=== PATIENT | female | born 1970 | race Caucasian/White ===

== ENCOUNTER 2020-04-14 10:28 | Outpatient (CLI) | payer OTHER, SELFPAY ==
--- NOTE | ~2020-04-14 | MM_ITS ---
EXAMINATION: MM screening jesús BI w randy HISTORY: Screening mammogram TECHNIQUE: Craniocaudal and mediolateral oblique 3-D tomosynthesis images were obtained and synthetic 2-D images were generated. CAD analysis was submitted and interpreted. COMPARISON: 07/21/2017 BREAST PARENCHYMAL COMPOSITION: There are scattered areas of fibroglandular density. FINDINGS: There is no evidence of suspicious mass, calcification, or architectural distortion to sugg est malignancy in either breast. There has been no suspicious interval change. IMPRESSION: 1. No mammographic evidence of malignancy. 2. Recommend routine screening mammography in one year. BI-RADS Category 1: Negative Reviewed, dictated and finalized at location A. S TECHNICIAN
== END 2020-04-14 10:29 | disposition home or self-care (01) ==
LOC: ANHIMG 10:32
PROVIDERS: PCP Family Medicine; Visit Provider Family Medicine
DX: Z12.31 Encounter for screening mammogram for malignant neoplasm of breast (principal)
CPT/HCPCS: 77063; 77067

== ENCOUNTER 2021-07-26 11:27 | Outpatient (CLI) | payer BC, SELFPAY ==
--- NOTE | ~2021-07-26 | XR_ITS ---
EXAMINATION: XR chest 2V 07/26/2021 11:47 INDICATION: Persistent cough PROCEDURE: 2 view chest COMPARISON: 08/30/2007 FINDINGS: The lungs are clear. The cardiomediastinal silhouette is within normal limits. There are no pleural effusions. There is no pneumothorax suspected. IMPRESSION: 1: NO ACUTE CARDIOPULMONARY DISEASE. Reviewed, dictated and finalized at location A. TRIMMER
== END 2021-07-26 11:28 | disposition home or self-care (01) ==
PROVIDERS: PCP Family Medicine
DX: R05.3 Chronic cough (principal); F17.210 Nicotine dependence, cigarettes, uncomplicated
CPT/HCPCS: 71046

== ENCOUNTER 2024-10-08 08:16 | Emergency (ER) | payer BC, SELFPAY ==
--- NOTE | ~2024-10-08 | XR_ITS ---
XR finger 2nd RT min 2V Ordering provider: Julia Rutherford APRN History: . RT distal 2nd digit sledgehammer to finger 30 min ago . Comparison: None. FINDINGS: BONES: Possible lucency seen in the lateral aspect of the base of the distal phalanx of the second fi nger which may be a fracture or summation shadow. Follow-up advised. JOINT SPACES: Narrowing of the distal interphalangeal joint. SOFT TISSUES: Laceration seen in the soft tissues of the distal phalanx of the second finger IMPRESSION: Possible fracture at the base of the distal phalanx laterally versus summation shadow. Follow-up advi sed. Soft tissue laceration in the area of the distal interphalangeal joint of the second finger. Reviewed, dictated and finalized at location A. IMPRESSION: Possible fracture at the base of the distal phalanx laterally versus summation shadow. Follow-up advised. Soft tissue laceration in the area of the distal interphalangeal joint of the s econd finger.
--- NOTE | 2024-10-08 08:27 | ED_ITS ---
HPI - Extremity Injury (Upper) General Chief Complaint: Extremity Injury, Upper Stated Complaint: right finger injury Time Seen by Provider: 10/08/24 08:35 Source: patient Mode of arrival: ambulatory Limitations: no limitations History of Present Illness HPI narrative: 54-year-old female presented for complaint of an injury and laceration to the right index finger sustained just prior to arrival. 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 Cleansed the finger with water and applied bandages. Endorses normal range of motion and sensation. Tetanus updated last year. Related Data Home Medications ?Medication ?Instructions ?Recorded ?Confirmed ?Last Taken ?Type alprazolam 1 mg tablet 1 mg PO TID PRN anxiety 10/08/24 10/08/24 Unknown History amitriptyline 25 mg tablet 25 mg PO HS 10/08/24 10/08/24 Unknown History buspirone 30 mg tablet 30 mg PO BID 10/08/24 10/08/24 Unknown History celecoxib 200 mg capsule 200 mg PO Q12H 10/08/24 10/08/24 Unknown History fluticasone fur. 100 mcg-umeclid 1 inh inhalation Q24H 10/08/24 10/08/24 Unknown History 62.5 mcg-vilant 25 mcg inhalat.powder (Trelegy Ellipta) gabapentin 800 mg tablet 800 mg PO TID 10/08/24 10/08/24 Unknown History pantoprazole 40 mg tablet,delayed 40 mg PO DAILY 10/08/24 10/08/24 Unknown History release sertraline 100 mg tablet 150 mg PO Q24H 10/08/24 10/08/24 Unknown History trazodone 100 mg tablet 100 mg PO HS PRN insomnia 10/08/24 10/08/24 Unknown History Allergies Allergy/AdvReac Type Severity Reaction Status Date / Time No Known Allergies Allergy Unknown Unverified 10/08/24 08:50 Review of Systems Review of Systems: CONSTITUTIONAL: Denies body aches, fever, chills CARDIOVASCULAR: Denies chest pain, palpitations, or edema. RESPIRATORY: Denies cough or dyspnea. SKIN: reports index finger lac MUSCULOSKELETAL: reports index finger pain NEUROLOGIC: Denies headache, numbness, tingling, or weakness. All systems reviewed & are unremarkable except as noted in HPI and below PMFSH Family History Family History (System 07/14/21 @ 16:07 by Waleska Hebert) Other Family history of arthritis Social History Social History (System 07/14/21 @ 16:07 by Waleska Hebert) Smoking status: Smoker, status unknown Alcohol intake: never Comments At time of signature, I have reviewed and agree with nursing past medical, surgical, social and family history unless otherwise noted. Please see nursing chart for further information. There is no relevant family history pertinent to the presenting complaint Exam Narrative: GENERAL: Well-appearing CHEST: Speaks in full sentences. No respiratory distress. HEART: Regular rate and rhythm. Normal and equal peripheral pulses. EXTREMITIES: Right hand 2nd digit with laceration to palmar aspect of DIP, 2cm, irregular. Digit has normal strength and sensation, normal range of motion. Skin avulsion to distal phalanx dorsal and palmar aspects <0.5cm. pulse palpable and equal bilaterally, skin warm, dry, pink. Capillary refill less than 3 seconds. SKIN: Warm, dry NEURO: Alert and oriented x3. PSYCH: Normal mood and affect Course Course Emergency Course: Patient is aware of diagnosis, understands and agrees to treatment plan. Anticipatory guidance given. Patient agrees to follow-up as directed and is aware of reasons to seek care at the emergency department. Portions of this record may have been created with voice recognition software Level of Care: Express Care Visit Vital Signs Vital signs: Vital Signs Temperature 98.3 F 10/08/24 08:28 Pulse Rate 101 H 10/08/24 08:28 Respiratory Rate 16 10/08/24 08:28 Blood Pressure 120/97 H 10/08/24 08:28 Pulse Oximetry 98 10/08/24 08:28 Oxygen Delivery Room Air 10/08/24 08:28 Temperature 98.3 F 10/08/24 08:28 Pulse Rate 101 H 10/08/24 08:28 Respiratory Rate 16 10/08/24 08:28 Blood Pressure 120/97 H 10/08/24 08:28 Pulse Oximetry 98 10/08/24 08:28 Oxygen Delivery Room Air 10/08/24 08:28 Reviewed Procedures Laceration Right 2nd digit: Date: 10/08/24 Description: irregular and clean Depth: simple, single layer Local Anesthetic: lidocaine 1% Amount of anesthesia used (mL): 5 Pre-repair: wound explored and irrigated (and soaked betadine and sterile water) ====== Skin Level ====== Skin layer closed with: nylon Size (cm): 5-0 Number of sutures: 5 Technique: simple, interrupted ====== Subcutaneous Layer ====== ====== Muscle Layer ====== ====== Tendon Layer ====== Dressing: Dressing and metal finger splint applied. MDM - Extremity Injury (Upper) MDM Narrative Medical decision making narrative: Discussed physical exam findings and xray with pt Contacted Dr Coombs who reviewed images and advised a few sutures, abx, metal finger splint and follow up with him. Pt tolerated 5 sutures to the wound, dressing and metal finger splint applied. Advised supportive measures and signs/symptoms to go to the ER. Pt is appropriate for outpt treatment and f/u with Dr Coombs. She is aware to contact her employer for workman's comp. Differential Diagnosis Differential diagnosis: Likely other (finger open fracture, dislocation, contusion, abrasion, avulsion, laceration) Imaging Data Radiologist's impression: Patient: Breonna Remy : 1970 MR#: [id number] Age: 54 Acct:[id number] Loc: [facility] ADM Date: 10/08/24Attending Dr: Ordering Physician: Julia Rutherford APRN Date of Service: 10/08/24 Procedure(s): XR finger 2nd RT min 2V XR finger 2nd RT min 2V Ordering provider: Julia Rutherford APRN History: . RT distal 2nd digit sledgehammer to finger 30 min ago . Comparison: None. FINDINGS: BONES: Possible lucency seen in the lateral aspect of the base of the distal phalanx of the second finger which may be a fracture or summation shadow. Follow-up advised. JOINT SPACES: Narrowing of the distal interphalangeal joint. SOFT TISSUES: Laceration seen in the soft tissues of the distal phalanx of the second finger IMPRESSION: Possible fracture at the base of the distal phalanx laterally versus summation s hadow. Follow-up advised. Soft tissue laceration in the area of the distal interphalangeal joint of the second finger. Discharge Plan Discharge Clinical Impression: Finger fracture, right, Finger laceration Patient Disposition: Home Condition: Stable Instructions: Antibiotic Form, Finger Fracture (ED), Finger Laceration (ED) Additional Instructions: You will need to be seen by the Hand Specialist Dr Coombs. Call today to schedule an appointment Keep the splint clean, and in place. Keep the splint dry. you may remove dressing/splint and wash as normal with soap and water gently. Do NOT wash with peroxide or alcohol. Take tylenol or ibuprofen at home for pain Take antibiotic as directed Avoid lifting, pushing, pulling, etc with the right hand, avoid anything that will risk contamination of the wound. Follow up with your PCP Go to the ER with any signs of infection such as redness, swelling, increased pain, or drainage prior to the appointment with the hand specialist. Patient Language: Surinamese Prescriptions: New cephalexin 500 mg capsule 500 mg PO Q8H 7 Days Qty: 21 0RF No Action celecoxib 200 mg capsule 200 mg PO Q12H alprazolam 1 mg tablet 1 mg PO TID PRN (Reason: anxiety) sertraline 100 mg tablet 150 mg PO Q24H amitriptyline 25 mg tablet 25 mg PO HS gabapentin 800 mg tablet 800 mg PO TID trazodone 100 mg tablet 100 mg PO HS PRN (Reason: insomnia) pantoprazole 40 mg tablet,delayed release (DR/EC) 40 mg PO DAILY buspirone 30 mg tablet 30 mg PO BID Trelegy Ellipta 100-62.5-25 mcg blister with device 1 inh INHALATION Q24H Follow-up/Referrals: Florence Coombs MD [Physician] - (right 2nd digit distal phalanx fracture and laceration) UNKNOWN,DOCTOR [Primary Care Provider] -
[2024-10-08 08:28] VITALS: BP 120/97; PULSE 101; RESP 16; TEMP 36.8; O2SAT 98
[2024-10-08] MEDS: LIDOCAINE 1% LOCAL INJ 2 ML AMPUL 6 ML INFILTRATE (09:35)
== END 2024-10-08 10:22 | disposition home or self-care (01) ==
PROVIDERS: Emergency Provider Nurse Practitioner Family
DX: S62.600A Fracture of unspecified phalanx of right index finger, initial encounter for closed fracture (principal); S61.210A Laceration without foreign body of right index finger without damage to nail, initial encounter; W27.8XXA Contact with other nonpowered hand tool, initial encounter; K21.9 Gastro-esophageal reflux disease without esophagitis; M19.90 Unspecified osteoarthritis, unspecified site; F41.9 Anxiety disorder, unspecified; F32.A Depression, unspecified; Z96.651 Presence of right artificial knee joint
CPT/HCPCS: 12001; 29130; 73140; 99214; G0463; J2003

== ENCOUNTER 2024-10-20 11:00 | Emergency (ER) | payer OTHER, BC, SELFPAY ==
--- NOTE | 2024-10-20 11:01 | ED_ITS ---
HPI - Wound/Laceration General Chief Complaint: Wound/Laceration Stated Complaint: Wound Check Time Seen by Provider: 10/20/24 11:00 Source: patient Mode of arrival: ambulatory Limitations: no limitations History of Present Illness HPI narrative: Breonna is a 54-year-old female patient presenting to the clinic today with complaints of a possible wound infection. She reports she injured her right index finger on October 08 while at work. States she hit her index finger with a sledgehammer. Diagnosed with open fracture of the right distal index finger and had 5 sutures placed. Took Keflex as prescribed for 1 week. Notice last night that the area was getting red and swollen and more painful. Noticed some yellow discharge this morning. No fevers, chills, body aches. Localized redness and swelling to the distal tip of the right index finger. Related Data Home Medications ?Medication ?Instructions ?Recorded ?Confirmed ?Last Taken ?Type alprazolam 1 mg tablet 1 mg PO TID PRN anxiety 10/08/24 10/08/24 Unknown History amitriptyline 25 mg tablet 25 mg PO HS 10/08/24 10/08/24 Unknown History buspirone 30 mg tablet 30 mg PO BID 10/08/24 10/08/24 Unknown History celecoxib 200 mg capsule 200 mg PO Q12H 10/08/24 10/08/24 Unknown History fluticasone fur. 100 mcg-umeclid 1 inh inhalation Q24H 10/08/24 10/08/24 Unknown History 62.5 mcg-vilant 25 mcg inhalat.powder (Trelegy Ellipta) gabapentin 800 mg tablet 800 mg PO TID 10/08/24 10/08/24 Unknown History pantoprazole 40 mg tablet,delayed 40 mg PO DAILY 10/08/24 10/08/24 Unknown History release sertraline 100 mg tablet 150 mg PO Q24H 10/08/24 10/08/24 Unknown History trazodone 100 mg tablet 100 mg PO HS PRN insomnia 10/08/24 10/08/24 Unknown History Allergies Allergy/AdvReac Type Severity Reaction Status Date / Time No Known Allergies Allergy Unknown Unverified 10/09/24 14:36 Review of Systems Review of Systems: Pertinent positives per HPI. Patient denies any fever, chills, rash, headache, visual changes, dizziness, cough, runny nose, sore throat, shortness of breath, chest pain, palpitations, nausea, vomiting, diarrhea, constipation, abdominal pain, or any urinary issues. [facility] Family History Family History Other Family history of arthritis Social History Social History Smoking status: Never smoker Alcohol intake: never Comments At the time of my signature, I reviewed and agree with the nursing past medical, surgical, social, and family history. There is no relevant family history pertinent to the patient complaint. Exam Narrative: General: Well-developed, well nourished, in no apparent distress Head: Normocephalic, atraumatic. Cardio: Regular rate and rhythm, s1 and s2 normal, no murmur appreciated. Resp: Clear to auscultation bilaterally, no rhonchi, rales, wheezing or rubs. Integumentary: Spivey, warm, and dry, 5 interrupted sutures intact to the volar lateral aspect of the right distal index finger, yellow discharge with mild erythema, redness, mild swelling, and tenderness to palpation noted to the distal right index finger. Wound culture obtained Course Course Emergency Course: Portions of this record may have been created with voice recognition software. Level of Care: Express Care Visit Vital Signs Vital signs: Vital Signs Temperature 36.8 C 10/20/24 11:07 Pulse Rate 78 10/20/24 11:07 Respiratory Rate 16 10/20/24 11:07 Blood Pressure 102/79 10/20/24 11:07 Pulse Oximetry 100 10/20/24 11:07 Oxygen Delivery Room Air 10/20/24 11:07 Temperature 36.8 C 10/20/24 11:07 Pulse Rate 78 10/20/24 11:07 Respiratory Rate 16 10/20/24 11:07 Blood Pressure 102/79 10/20/24 11:07 Pulse Oximetry 100 10/20/24 11:07 Oxygen Delivery Room Air 10/20/24 11:07 Vital signs reviewed MDM - Wound/Laceration MDM Narrative Medical decision making narrative: At the time of visit patient is resting comfortably on the exam table. Patient appears to be nontoxic. Labs: Wound Culture was sent to the lab. Plan: I suspect patient has a wound infection. Prescription for clindamycin was sent to the pharmacy. Supportive measures were discussed with the patient and they voiced understanding discharge instructions and agrees to treatment plan. Return precautions reviewed Differential Diagnosis Differential diagnosis: Likely laceration, abscess and other (Wound infection, cellulitis) Discharge Plan Discharge Clinical Impression: Wound infection Patient Disposition: Home Condition: Stable Instructions: Antibiotic Form, Wound Infection (ED) Additional Instructions: Increase fluids and stay well hydrated Rest, ice, and elevate May take Tylenol/Motrin as needed for pain Wash wound daily with soap and water and pat dry Wound culture was sent to the lab Take clindamycin as prescribed Take probiotic daily-2 hours before 2 hours after taking the antibiotic Follow-up with Dr. Coombs on Monday as scheduled. Patient Language: Bulgarian Prescriptions: New clindamycin HCl [Cleocin HCl] 300 mg capsule 300 mg PO Q8H 7 Days Qty: 21 0RF No Action celecoxib 200 mg capsule 200 mg PO Q12H alprazolam 1 mg tablet 1 mg PO TID PRN (Reason: anxiety) sertraline 100 mg tablet 150 mg PO Q24H amitriptyline 25 mg tablet 25 mg PO HS gabapentin 800 mg tablet 800 mg PO TID trazodone 100 mg tablet 100 mg PO HS PRN (Reason: insomnia) pantoprazole 40 mg tablet,delayed release (DR/EC) 40 mg PO DAILY buspirone 30 mg tablet 30 mg PO BID Trelegy Ellipta 100-62.5-25 mcg blister with device 1 inh INHALATION Q24H cephalexin 500 mg capsule 500 mg PO Q8H 7 Days Qty: 21 0RF Follow-up/Referrals: UNKNOWN,DOCTOR [Non-Staff] - Time of Disposition: 11:13 Quality NIHSS Nursing Documentation ED NIHSS nursing documentation: reviewed/agree
[2024-10-20 11:07] VITALS: BP 102/79; PULSE 78; RESP 16; TEMP 36.8; O2SAT 100
== END 2024-10-20 11:22 | disposition home or self-care (01) ==
PROVIDERS: Emergency Provider Nurse Practitioner Family
DX: T81.41XA Infection following a procedure, superficial incisional surgical site, initial encounter (principal)
CPT/HCPCS: 87070; 87075; 87205; 99213; G0463

== ENCOUNTER 2024-10-22 09:10 | Outpatient (CLI) | payer OTHER, SELFPAY ==
--- NOTE | ~2024-10-22 | XR_ITS ---
XR finger 2nd RT min 2V Ordering provider: Florence Coombs MD History: . S62.630A - Displaced fracture of distal phalanx of right ... . Comparison: None. FINDINGS: BONES: Healing fracture at the base of the distal phalanx of the second finger. JOINT SPACES: Narrowing of the distal interphalangeal joint. SOFT TISSUES: Soft tissue swelling over the distal phalanx. IMPRESSION: Healing fracture of the distal phalanx of the second finger. 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 Reviewed, dictated and finalized at location A.
--- OUTSIDE RECORDS SUMMARY | 2024-10-22 09:26 | XMS_ITS | Encounter Summary ---
Author Organization [facility] Address [address] [place] [address] Care Team Providers Care Director Of Primary Name Role Phone Unavailable Primary Care Provider Unavailabl e Encounter Details Date Type Department Care Team (Late st Contact Info) Description 07/29/2020 Ancillary Orders [facility] [address] [address] Laura Magdaleno MD [address] [place] [id number] Coronavirus infection, unspecified Social History Tobacco Use Types Packs/Day Years Used Date Smoking Tobacco: Never Assessed Comments Unknown Sex and Gender Information Value Date Recorded Sex Assigned at Not on file 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 No / Unsure 07/29/2020 2:28 PM DATABASE TESTER documented as of this encounter Plan of Treatment Not on file documented as of this encounter Results * XR CHEST PA AND LATERAL 2 VW (07/29/2020 2:42 PM DATABASE TESTER) Anatomical Region Laterality Modality Chest Computed Radiogr aphy 07/29/2020 2:43 PM DATABASE TESTER Impressions 07/29/2020 3:05 PM DATABASE TESTER IMPRESSION: Normal chest. Narrative 07/29/2020 3:05 PM DATABASE TESTER Exam: XR CHEST PA AND LATERAL 2 VW Date/Time of Exam: 07/29/2020 2:42 PM Reason For Exam: See Diagnosis Diagnosis: Coronavirus infection, unspecified Findings: The heart size is normal. The lungs are clear. The costophrenic angles are sharp. No pneumothorax is seen. Procedure Note Ty Tatum MD - 07/29/2020 Exam: XR CHEST PA AND LATERAL 2 VW Date/Time of Exam: 07/29/2020 2:42 PM Reason For Exam: See Diagnosis Diagnosis: Coronavirus infection, unspecified Findings: The heart size is normal. The lungs are clear. The costophrenic angles are sharp. No pneumothorax is seen. IMPRESSION: Normal chest. us Laura Magdaleno MD DIAGNOSTIC IMAGING ORDERABLE S Final Result documented in this encounter Visit Diagnoses Diagnosis Coronavirus infection, unspecified Coronavirus infection, unspecified documented in this encounter
--- OUTSIDE RECORDS SUMMARY | 2024-10-22 09:26 | XMS_ITS | Continuity of Care Document ---
Author Organization [facility] Address [address] [address] [place] [address] Phone Care Team Providers Care Lube Man Name Role Phone Teddy Flores MD Unavailable Unavailable Advance Directives Directive Yes / No Effective Date File Name No Information Encounters Encounter Description Practice Location Reason(s) For Visit Diagnoses Date Provider Providers Copied on Encounter [facility], [address] [place], [place], [id number], tel:[phone] [facility] No Information Mark Espinal. [address], [address] [place], [place], [id number], [place]. tel:[phone] Referring Provider: Teddy Flores, [address], [place], [id number]. tel:[phone] Family History Family Member Type Diagnosis Age At Onset No Information Payers Payer name Insurance type Covered constitution party ID Authoriza tion(s) No Information Social History Type Description Quantity Date Captured Comments Sex Female Smoking Status No Information Chief Complaint And Reason For Visit No Information Plan Of Treatment Date Type Action Status No Information History Of Present Illness Encounter Date Complaint History Of Prese nt Illness No Information Instructions Date Instruction Additional Infor mation No Information Assessments Type Assessment Date No Information
--- OUTSIDE RECORDS SUMMARY | 2024-10-22 09:26 | XMS_ITS | Clinical Summary ---
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 Gender Identity Not on file Sexual Orientation Not on file Plan of Treatment Health Maintenance Due Date Last Done Comments HEPATITIS B VACCINES (1 of 3 - 19+ 3-dose series) 06/1989 HPV/Cotest (21-29) 02/28/1992 CERVICAL CANCER SCREENING 2001 HPV/Cotest (30-65) 2001 PAP SMEAR 2001 BREAST CANCER SCREENING 2011 COLORECTAL SCREENING 02/28/2016 Colorectal Cancer Screening 02/28/2016 FIT-DNA Q 3 years 02/28/2016 FIT/FOBT Q 1 year 02/28/2016 Flex Sig/CT Colonography Q 5 years 02/28/2016 ZOSTER VACCINE (1 of 2) 2021 INFLUENZA VACCINE (#1) 2023 DTAP/TDAP/TD VACCINES (2 - Td or Tdap) 09/13/2027 Insurance RX [employer] (INTERNAL) [facility] [employer]URANCE RX [employer] Commercial
--- OUTSIDE RECORDS SUMMARY | 2024-10-22 09:26 | XMS_ITS | Referral Summary ---
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 Name Role Phone Parul Cam NP Primary Care Provider Encounters Date Type Department Care Team Description 10/18/2024 12:30 PM CDT Telemedicine [facility] at [address] [place] [address] Parul Cam NP Healthcare maintenance (Primary Dx); Mucopurulent chronic bronchitis (HCC); ANDREW (generalized anxiety disorder); Psychophysiologic insomnia; Mixed hyperlipidemia; Multiple joint pain; Closed nondisplaced fracture of distal phalanx of right index finger with routine healing, subsequent encounter 10/02/2024 Results Follow-Up [facility] at [address] [place] [phone] Parul Cam NP BEVERLY ab ql w/rflx to BEVERLY qn, Rheumatoid factor, CRP (acute phase), Additional followed-up results: 12 09/26/2024 11:40 AM CDT Lab [facility] Bldg [address] [place] [address] [address] [place] [address] Multiple joint pain; Healthcare maintenance; Need for hepatitis B screening test; Encounter for hepatitis C screening test for low risk patient; Vitamin D deficiency 09/26/2024 11:00 AM CDT Office Visit [facility] at [address] [place] [phone] Parul Cam NP Multiple joint pain (Primary Dx); Psychophysiologic insomnia; ANDREW (generalized anxiety disorder); Spinal stenosis of lumbar region without neurogenic claudication; Class 2 severe obesity with serious comorbidity and body mass index (BMI) of 39.0 to 39.9 in adult, unspecified obesity type (HCC); Mixed hyperlipidemia; GERD without esophagitis; Tobacco dependence; Healthcare maintenance; Need for hepatitis B screening test; Encounter for hepatitis C screening test for low risk patient; Mucopurulent chronic bronchitis (HCC) 08/12/2024 3:45 PM CDT Office Visit [facility] Surgery [address] [place] [address] Advanced Medicine 6th [place] [address] Maria Luisa Nobles MD Lip laceration, initial encounter (Primary Dx) 08/07/2024 10:20 AM CDT - 08/07/2024 12:15 PM CDT Surgery [facility] Operating [facility]) [address] [place] [address] Maria Luisa Nobles MD REVISION SCAR - FACE - LEFT upper lip scar revision 08/07/2024 10:11 AM CDT Anesthesia Event [facility] ([facility]) [address] [place] [address] Glen Fraire MD DDS Figura, Renee Michelle, NP 08/07/2024 8:04 AM CDT - 08/07/2024 2:35 PM CDT Hospital Encounter [facility] Operating [facility] ([facility]) [address] [place] [address] Maria Luisa Nobles MD Scar of skin of upper lip Discharge Disposition: Discharge to home or self care 08/05/2024 9:15 AM CDT Lab [facility]) [address] [place] [phone] Scar of vermilion border of upper lip 08/02/2024 Orders Only [facility] Surgery [address] [place] [address] Advanced Medicine 6th [place] [address] Bonk, Diana, RN Scar of vermilion border of upper lip (Primary Dx) from Last 3 Months Allergies No known active allergies Medications busPIRone (BUSPAR) 30 mg tablet Take 1 tablet (30 mg total) by mouth 2 (two) times a day 03/24/20 22 Active sertraline 150 mg capsule Take 150 mg by mouth every morning 05/29/[address] (PROTONIX) 40 mg EC tabletIndicati ons:Gastroesop hageal reflux disease, unspecified whether esophagitis present Take 1 tablet (40 mg total) by mouth daily 90 tablet 3 07/15/19 25 Active Additional Information Patient taking differently:40 mg oralEvery morning, Indications: Stress Ulcer Prophylaxis, Informant: Self, Reported on 10/18/2024 ALPRAZolam (XANAX) 1 mg tablet Take 1 tablet (1 mg total) by mouth daily as needed for anxiety 2 07/30/19 25 Active gabapentin (NEURONTIN) 800 mg tablet Take 300 mg by mouth 3 (three) times a day Active traZODone (DESYREL) 100 mg tabletIndicati ons:Psychophys iologic insomnia Take 1.5 tablets (150 mg total) by mouth nightly as needed for sleep 09/27/19 25 Active celecoxib (CeleBREX) 200 mg capsule Take 1 capsule (200 mg total) by mouth 2 (two) times a day 180 capsule 3 09/27/19 25 026 Active fluticasone-um eclidin-vilant er (Trelegy Ellipta) 100-62.5-25 mcg inhalerIndicat ions:Mucopurul ent chronic bronchitis (HCC) Inhale 1 puff daily 60 each 2 10/19/19 25 Active fexofenadine (JANET) 60 mg tablet Take 1 tablet (60 mg total) by mouth daily as needed (allergies) 025 Discontinued(P atient Reported) ibuprofen (ADVIL,MOTRIN) 800 mg tablet Take 1 tablet (800 mg total) by mouth 3 (three) times a day 90 tablet 11 06/09/19 24 025 Discontinued(T herapy completed) celecoxib (CeleBREX) 200 mg capsule Take 1 capsule (200 mg total) by mouth 2 (two) times a day 180 capsule 3 10/13/19 24 025 Discontinued(R eorder) cyclobenzaprin e (FLEXERIL) 10 mg tablet Take 1 tablet (10 mg total) by mouth 2 (two) times a day as needed for muscle spasms 60 tablet 5 10/13/19 24 025 Discontinued(P atient Reported) fluticasone-um eclidin-vilant er (Trelegy Ellipta) 100-62.5-25 mcg inhalerIndicat ions:Mucopurul ent chronic bronchitis (HCC) Inhale 1 puff daily 60 each 2 02/08/20 24 025 Discontinued(R eorder) traZODone (DESYREL) 100 mg tabletIndicati ons:Primary insomnia Take 1 tablet (100 mg total) by mouth nightly as needed for sleep 30 tablet 2 02/08/20 24 025 Discontinued amitriptyline (ELAVIL) 25 mg tablet Take 1 tablet (25 mg total) by mouth nightly 30 tablet 09/27/19 25 025 Discontinued(P atient Reported) fluticasone-um eclidin-vilant er (Trelegy Ellipta) 100-62.5-25 mcg inhalerIndicat ions:Mucopurul ent chronic bronchitis (HCC) Inhale 1 puff daily 60 each 2 09/27/19 25 025 Discontinued(P atient Reported) eszopiclone (LUNESTA) 1 mg tabletIndicati ons:Insomnia Take 1 tablet (1 mg total) by mouth daily Take immediately before bedtime 30 tablet 10/19/19 25 025 Discontinued(T herapy completed) Active Problems Problem Noted Date Diagnosed Date Nondisplaced fracture of dis guido phalanx of right index finger with routine healing 10/18/2024 Mucopurulent chronic bronchitis 10/18/2024 ANDREW (generalized anxiety disorder) 09/26/2024 Tobacco dependence 09/26/2024 Simple chronic bronchitis 09/26/2024 Multiple joint pain 09/26/2024 Class 2 severe obesity with serious comorbidity and body mass index (BMI) of 35.0 to 35.9 in adult 09/26/2024 Scar of skin of upper lip 06/24/2024 GERD without esophagitis 08/10/2023 Primary osteoarthritis of both knees 07/22/2022 Mixed hyperlipidemia 07/26/2021 Diverticulosis of colon 11/27/2019 Hot flashes due to menopause 05/02/2017 Nontoxic multinodular goiter 05/02/2017 Psychophysiologic insomnia 05/02/2017 Spinal stenosis of lumbar region 10/12/2016 Resolved Problems Problem Noted Date Diagnosed Date Resolved Date Viral upper respiratory tract infection 06/24/2024 09/26/2024 Muscle spasm 08/10/2023 09/26/2024 Primary osteoarthritis of right knee 12/05/2022 09/26/2024 Dyslipidemia 07/22/2022 09/26/2024 Dental abscess 07/22/2022 09/26/2024 Overview (07/22/2022): Clndamycin. COVID-19 07/28/2020 09/26/2024 Overview (06/24/2024): Removal Reason: Recovered Gastritis 11/27/2019 09/26/2024 Internal hemorrhoids 11/27/2019 025 Obesity 09/12/2017 09/26/2024 Assessment & Plan (01/16/2023 7:51 AM CDT): Recommended aggressive Lifestyle modification and weight loss for improving overall weight related health conditions. Follow up in 1 or 3 months for continuing Lifestyle Medicine education and management visit. Recommend Lifestyle Seminar on Wednesdays @ 5pm. Chronic back pain 08/06/2017 09/26/2024 Tobacco use 08/06/2017 09/26/2024 Other chronic pain 08/06/2017 Anxiety disorder 05/02/2017 09/26/2024 Allergic rhinitis 04/18/2017 09/26/2024 Cough 04/18/2017 09/26/2024 Sciatica 04/18/2017 09/26/2024 Anxiety 04/18/2017 09/26/2024 Low back pain 04/18/2017 09/26/2024 Multinodular goiter 04/18/2017 09/27/19 25 Bronchitis 04/17/2017 09/26/2024 Contusion of upper limb 04/17/2017 05/0 05/2024 Overview (06/24/2024): LUE Venereal disease screening 10/12/2016 0 09/26/2024 Depressive disorder 10/12/2016 09/27/19 25 Thyroid nodule 10/12/2016 09/26/2024 Cigarette nicotine dependenc e without complication 10/12/2016 09/26/2024 Morbid obesity with body mas s index of 40.0-49.9 10/12/2016 09/26/2024 Insomnia 10/12/2016 09/26/2024 Assessment & Plan (10/16/2023 9:30 AM CDT): Patient have tried and failed ambien and lunesta in the past. Immunizations Immunization Administration Dates Next Due DTaP 01/19/2007, 3,01/07/2002,11/05,07/26/2001 HPV9 07/12/2016,03/15/2016,01/04/2016 Hep A, Pediatric 11/21/2018 Hep B / HiB 11/05/2001 Hep B, Adolescent or Pediatric 06/26/2001,2000 HiB 10/07/2002,01/07/2002,07/26/2001 IPV 01/19/2007, 2,11/05/2001,07/26 Influenza, Quadrivalent, Spl it, Intramuscular 03/17/2020 Influenza, Quadrivalent, Spl it, Preservative Free, Intramuscular 04/29/2023,02/21/2022,05/23/2021,04/24 Influenza, Split 04/27/2016 Influenza, Trivalent, Preser vative Free, Intramuscular 02/03/2024 MMR 01/19/2007,06/10/2002 Meningococcal B, OMV (Bexsero) 11/21/2018 Meningococcal Conjugate (Menveo) 11/21/2018 Meningococcal MCV4, Unspecified 01/03/2013 Moderna SARS-CoV-2 Monovalen t Vaccination (12+ YRS) 11/10/2020,10/13/2020 Pneumococcal Conjugate 7-Valent 10/07/2002,06/10,11/05/2001 Pneumococcal Conjugate Pcv20 07/28/2021 Tdap 02/21/2022,09/12/2017,01/03/2013 Varicella 02/19/2007,06/10/2002 ZOSTER Recombinant 07/28/2021,05/23/2021 Social History Tobacco Use Types Packs/Day Years Used Date Smoking Tobacco: Former Cigarettes 0.5 35 1 6 - 2020 Smokeless Tobacco: Never Tobacco Cessation:Counseling Given: Not Answered Comments:pt denied improvement with Nicotine patches AUDIT-C Answer Date Recorded Q1: How often do you have a drink containing alcohol? Never 10/18/2024 Q2: How many drinks containi ng alcohol do you have on a typical day when you are drinking? Patient does not drink Q3: How often do you have si x or more drinks on one occasion? Never 10/18/2024 PHQ-2 Answer Date Recorded PHQ-2 Total Score (If total score is 3 or more points, staff should administer the PHQ-9) 0 09/26/2024 PHQ-9 Answer Date Recorded PHQ-9 Total Score 3 09/26/2024 Personal Safety Answer Date Recorded Have you ever been in or are you currently in a harmful physical or emotional relationship or is someone making you feel afraid or unsafe? 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 Gender Identity Female 11/18/2020 6:45 AM CDT Sexual Orientation Straight 11/18/2020 6: 45 AM CDT Last Filed Vital Signs Vital Sign Reading Time Taken Comments Blood Pressure 130/86 09/26/2024 10:53 AM CDT Pulse 89 09/26/2024 10:53 AM CDT Temperature 36.4 C (97.5 F) 09/26/2024 10:53 AM CDT Respiratory Rate 18 09/26/2024 10:53 AM CDT Oxygen Saturation 94% 09/26/2024 10:53 AM CDT Inhaled Oxygen Concentration - - Weight 107.5 kg (237 lb) 10/18/2024 12:33 PM CDT per patient Height 165.1 cm (5' 5 ) 09/26/2024 10:53 AM CDT Body Mass Index 39.44 09/26/2024 10:53 AM CDT Plan of Treatment Not on file Medical Devices Implanted Type Area Anesthesiologists' Assistant Device Identifier Shelf Expiration Date Model / Serial / Lot Right Knee Replacement Right: Knee Procedures Procedure Name Priority Date/Time Associated Diagnosis Comments EGFR Routine 09/26/2024 11:52 AM CDT Healthcare maintenance DIFFERENTIAL AUTO Routine 09/26/2024 11:52 AM CDT Healthcare maintenance VITAMIN D 25 HYDROXY Routine 09/26/2024 11:52 AM CDT Vitamin D deficiency THYROID FUNCTION CASCADE Routine 09/26/2024 11:52 AM CDT Healthcare maintenance COMPREHENSIVE METABOLIC PANEL Routine 09/26/2024 11:52 AM CDT Healthcare maintenance CBC WITH AUTO DIFFERENTIAL Routine 09/26/2024 11:52 AM CDT Healthcare maintenance LIPID PANEL Routine 09/26/2024 11:52 AM CDT Healthcare maintenance ERYTHROCYTE SEDIMENTATION RATE Routine 09/26/2024 11:52 AM CDT Multiple joint pain CRP (ACUTE PHASE) Routine 09/26/2024 11:52 AM CDT Multiple joint pain RHEUMATOID FACTOR Routine 09/26/2024 11:52 AM CDT Multiple joint pain BEVERLY QUALITATIVE WITH REFLEX TO BEVERLY QUANTITATIVE Routine 09/26/2024 11:52 AM CDT Multiple joint pain HEPATITIS C ANTIBODY Routine 09/26/2024 11:52 AM CDT Encounter for hepatitis C screening test for low risk patient HEPATITIS B SURFACE ANTIBODY (IMMUNE STATUS) Routine 09/26/2024 11:52 AM CDT Need for hepatitis B screening test HEPATITIS B CORE ANTIBODY, TOTAL Routine 09/26/2024 11:52 AM CDT Need for hepatitis B screening test HEPATITIS B SURFACE ANTIGEN Routine 09/26/2024 11:52 AM CDT Need for hepatitis B screening test TX 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 Routine 08/07/2024 11:59 AM CDT TX AN ELECTIVE ENDOTRACHEAL AIRWAY Routine 08/07/2024 11:59 AM CDT SURGICAL PATHOLOGY Routine 08/07/2024 11:25 AM CDT Scar of skin of upper lip RHINOPLASTY. 08/07/2024 10:10 AM CDT Scar of skin of upper lip Case Notes 07/25 - Waiting for WIT. NB Special Needs Permanent specimen, 1% Lidocaine w/ Epinephrine 1:100 000, TXA (1 vial) REVISION SCAR HEAD OR NECK. 08/07/2024 10:10 AM CDT Scar of skin of upper lip Case Notes 07/25 - Waiting for WIT. NB Special Needs Permanent specimen, 1% Lidocaine w/ Epinephrine 1:100 000, TXA (1 vial) DIFFERENTIAL AUTO Routine 08/05/2024 9:2 7 AM CDT Scar of vermilion border of upper lip HCG, URINE, QUALITATIVE Routine 08/05/2024 9:27 AM CDT Scar of vermilion border of upper lip PROTIME-INR Routine 08/05/2024 9:27 AM CDT Scar of vermilion border of upper lip APTT Routine 08/05/2024 9:27 AM CDT Scar of vermilion border of upper lip CBC WITH AUTO DIFFERENTIAL Routine 08/05/2024 9:27 AM CDT Scar of vermilion border of upper lip DIAGNOSTIC MAMMOGRAM Schedule Routine, Read Routine (OP Routine) 09/17/2021 COLONOSCOPY Routine 11/12/2019 from Last 3 Months or Most Recently Relevant to Health Maintenance Results * BEVERLY ab ql w/rflx to BEVERLY qn (09/26/2024 11:52 AM CDT) BEVERLY Negative Comment: Interpretive Data Normal range for BEVERLY Qualitative Antibody = Negative. 1. BEVERLY is performed using indirect immunofluorescence against HEp-2 cells 2. BEVERLY titers are performed on all positive qualitative results. 3. A significantly positive BEVERLY result is defined as a positive nuclear fluorescence at a titer of 1:80 or greater. 4. 15% of normal people above age 65 have significantly positive BEVERLY results. 5% or less of normal people age 65 or under have significantly positive BEVERLY results. Current interpretive data was last revised on 2020. Testing performed by: [facility], [address] [place]., [address] Blood 09/26/2024 11:5 2 AM CDT 09/26/2024 3:03 PM CDT us Parul Cam FIELD TRAINER LAB BLOOD ORDERABLES Final Re sult [facility] [address] [facility] Department [place] [address] * eGFR (09/26/2024 11:52 AM CDT) eGFR >90 >=60 mL/min/1. 73 m2 Comment: Interpretive Data Reference Interval Normal >/= 90 mL/min/1.73m2 Mildly decreased* 60 - 89 mL/min/1.73m2 Mildly to moderately decreased 45 - 59 mL/min/1.73m2 Moderately to severely decreased 30 - 44 mL/min/1.73m2 Severely decreased 15 - 29 mL/min/1.73m2 Kidney Failure < 15 mL/min/1.73m2 *Relative to young adult level Estimated glomerular filtration rate is determined by the 2020 CKD-EPI equation recommended by the National Kidney Foundation (A Unifying Approach to GFR Estimation: Recommendations of the NKF-ASK Task Force on Reassessing the Inclusion of Race in Diagnosing Kidney Disease, JASN 2020). The CKD-EPI equation should not be used for patients with unstable renal function and has not been validated in children and those over 70. Current interpretive data was last reviewed 2021. Blood 09/26/2024 11:5 2 AM CDT 09/26/2024 12:23 PM CDT us Parul Cam NP LAB BLOOD ORDERABLES Final Re sult [facility] [address] [facility] Department [place] [address] * Differential, auto (09/26/2024 11:52 AM CDT) Neutrophil abs 4.05 1.50 - 6.50 K/cumm Imm gran abs 0.01 0.00 - 0.10 K/cumm [facility] Lymphocyte abs 1.98 0.80 - 3.30 K/cumm [facility] Monocyte abs 0.52 0.20 - 0.80 K/cumm [facility] Eosinophil abs 0.08 0.00 - 0.50 K/cumm [facility] Basophil abs 0.04 0.00 - 0.10 K/cumm [facility] Neutrophil pct 60.7 % [facility] Comment: Interpretive Data Percent cell count reference ranges are not reported, since discordance with absolute values may lead to misinterpretation of CBC data. Current Interpretive Data was last revised on 2017. Imm gran pct 0.1 % [facility] Comment: Interpretive Data Percent cell count reference ranges are not reported, since discordance with absolute values may lead to misinterpretation of CBC data. Current Interpretive Data was last revised on 2017. Lymphocyte pct 29.6 % [facility] Comment: Interpretive Data Percent cell count reference ranges are not reported, since discordance with absolute values may lead to misinterpretation of CBC data. Current Interpretive Data was last revised on 2017. Monocyte pct 7.8 % [facility] Comment: Interpretive Data Percent cell count reference ranges are not reported, since discordance with absolute values may lead to misinterpretation of CBC data. Current Interpretive Data was last revised on 2017. Eosinophil pct 1.2 % [facility] Comment: Interpretive Data Percent cell count reference ranges are not reported, since discordance with absolute values may lead to misinterpretation of CBC data. Current Interpretive Data was last revised on 2017. Basophil pct 0.6 % [facility] Comment: Interpretive Data Percent cell count reference ranges are not reported, since discordance with absolute values may lead to misinterpretation of CBC data. Current Interpretive Data was last revised on 2017. Blood 09/26/2024 11:5 2 AM CDT 09/26/2024 12:24 PM CDT Parul Cam FIELD TRAINER LAB BLOOD ORDERABLES Final Re sult Performing Organization Address [facility] de Phone Number [address] [address] * Thyroid Function Fowler (09/26/2024 11:52 AM CDT) Pathologist [facility] TSH 1.09 0.30 - 4.20 mcIUnit/mL Blood 09/26/2024 11:5 2 AM CDT 09/26/2024 12:23 PM CDT Parul Cam FIELD TRAINER LAB BLOOD ORDERABLES Final Re sult Performing Organization Address [facility] de Phone Number [address] [address] * (ABNORMAL) CBC with auto differential (09/26/2024 11:52 AM CDT) [facility] WBC 6.68 3.80 - 9.90 K/cumm Hgb 13.1 11.9 - 15.5 g/dL [facility] Hct 41.8 35.6 - 45.5 % [facility] Plt 379 150 - 400 K/cumm [facility] MPV 9.5 9.1 - 12.3 fL [facility] RBC 4.52 3.90 - 5.20 M/cumm [facility] MCV 92.5 81.3 - 96.4 fL [facility] MCH 29.0 27.1 - 33.3 pg [facility] MCHC 31.3(L) 32.3 - 35.7 g/dL [facility] RDW CV 13.5 11.1 - 14.9 % [facility] RDW SD 46.0 35.7 - 48.1 fL [facility] NRBC abs 0.00 0.00 - 0.01 K/cumm [facility] Blood 09/26/2024 11:5 2 AM CDT 09/26/2024 12:24 PM CDT Parul Cam NP LAB BLOOD ORDERABLES Final Re sult Performing Organization Address [facility] Co de Phone Number [facility] [address] [place] [address] * Hepatitis C antibody Blood (09/26/2024 11:52 AM CDT) Hep C Ab Nonreactive Nonreactive Comment: Antibodies to HCV not detected. Does NOT exclude the possibility of recent exposure to HCV. Current interpretive data was last revised on 22 Interpretive Data Nonreactive: Antibodies to HCV not detected. Does NOT exclude the possibility of recent exposure to HCV. Equivocal: Equivocal for HCV antibodies. Supplemental molecular testing will be automatically performed to determine infection status in accordance with current CDC screening recommendations. Reactive: Positive for HCV antibodies. This may represent current or past HCV infection. Supplemental molecular testing will be automatically performed to determine current infection status in accordance with current CDC screening recommendations. Interpretive data was last revised on 2019. Blood 09/26/2024 11:5 2 AM CDT 09/26/2024 12:23 PM CDT Parul Cam NP LAB MICROBIOLOGY - GENERAL OR DERABLES Final Result Performing Organization Address [facility] Co de Phone Number [address] [address] * Hepatitis B core antibody, total Blood (09/26/2024 11:52 AM CDT) Hep B core IgG/IgM Nonreactive Nonreactive Comment:Testing performed by : [facility], [address] [facility], [place]., [address] Blood 09/26/2024 11:5 2 AM CDT 09/26/2024 3:03 PM CDT Parul Cam NP LAB MICROBIOLOGY - GENERAL OR DERABLES Edited Result - Final Performing Organization Address [facility] Co de Phone Number MILLI [address] [place] [address] * Vitamin D 25 hydroxy (09/26/2024 11:52 AM CDT) [facility] Vitamin D 25-OH 31.0 30.0 - 80.0 ng/mL Blood 09/26/2024 11:5 2 AM CDT 09/26/2024 12:23 PM CDT Parul Cam NP LAB BLOOD ORDERABLES Final Re sult Performing Organization Address [facility] de Phone Number LOY[address] [place] [address] * Hepatitis B surface antibody (immune status) Blood (09/26/2024 11:52 AM CDT) [facility] HBsAb (immune status) Reactive Comment: Interpretive Data Nonreactive: This result is consistent with a lack of immunity to Hepatitis B Virus when used in the setting of routine screening. Equivocal: The immune status of the individual should be further assessed, if appropriate, after consideration of clinical status, risk factors, and additional diagnostic information. Reactive: This result is consistent with immunity to Hepatitis B Virus when used in the setting of routine screening. Current interpretive data was last revised on 19. HBsAb (immune status) index 969.0 mIUnits/m [facility] Blood 09/26/2024 11:5 2 AM CDT 09/26/2024 12:23 PM CDT Parul Cam NP LAB MICROBIOLOGY - GENERAL OR DERABLES Final Result Performing Organization Address [facility] Co de Phone Number LOYD[address] [place] [address] * Hepatitis B Surface Antigen Blood (09/26/2024 11:52 AM CDT) [facility] HepBsAg Nonreactive Nonreactive Blood 09/26/2024 11:5 2 AM CDT 09/26/2024 12:23 PM CDT Parul Cam NP LAB MICROBIOLOGY - GENERAL OR DERABLES Final Result Performing Organization Address [facility]/ZIP Co de Phone Number MILLI [address] [address] * Erythrocyte sedimentation rate (09/26/2024 11:52 AM CDT) Erythrocyte sedimentation rate 23 1 - 30 mm/hr Blood 09/26/2024 11:5 2 AM CDT 09/26/2024 12:24 PM CDT Parul Cam NP LAB BLOOD ORDERABLES Final Re sult Performing Organization Address [facility] de Phone Number [address] [place] [address] * Rheumatoid factor (09/26/2024 11:52 AM CDT) Rheumatoid factor, quant <10.0 <=15.0 IUnits/mL Blood 09/26/2024 11:5 2 AM CDT 09/26/2024 12:23 PM CDT Parul Cam NP LAB BLOOD ORDERABLES Final Re sult Performing Organization Address [facility] Co de Phone Number [address] [place] [address] * CRP (acute phase) (09/26/2024 11:52 AM CDT) Pathologist [facility] CRP 4.8 <=10.0 mg/L Blood 09/26/2024 11:5 2 AM CDT 09/26/2024 12:23 PM CDT Parul Cam NP LAB BLOOD ORDERABLES Final Re sult Performing Organization Address [facility] Co de Phone Number CERNER [address] [place] [address] * (ABNORMAL) Lipid panel (09/26/2024 11:52 AM CDT) Cholesterol 250(H) 30 - 199 mg/dL Comment: Interpretive Data Ages < or = 19 years Acceptable: <170 mg/dL Borderline high: 170-199 mg/dL High: >or= 200 mg/dL Ages > or = 20 years Desirable: <200 mg/dL Borderline high: 200-239 mg/dL High: >or= 240 mg/dL Literature References: 1. Expert Panel on Integrated Guidelines for Cardiovascular Health and Risk Reduction in Children and Adolescents. Pediatrics 2011;128:S213 2. NCEP Expert Panel. Circulation 2004;110:227 Current Interpretive Data was last revised on 2018. Triglycerides 147 <=149 mg/dL [facility] Comment: Interpretive Data Ages < or = 9 years Acceptable: <75 mg/dL Borderline high: 75-99 mg/dL High: >or= 100 mg/dL Ages 10 to 20 years Acceptable: <90 mg/dL Borderline high: 90-129 mg/dL High: >or= 130 mg/dL Ages > or = 20 years Desirable: <150 mg/dL Borderline high: 150-199 mg/dL High: 200-499 mg/dL Very high: >or= 499 mg/dL Literature References: 1. Expert Panel on Integrated Guidelines for Cardiovascular Health and Risk Reduction in Children and Adolescents. Pediatrics 2011;128:S213 2. NCEP Expert Panel. Circulation 2004;110:227 Current Interpretive Data was last revised on 2018. HDL 43 >=40 mg/dL [facility] Comment: Interpretive Data Ages < or = 19 years Acceptable: >45 mg/dL Borderline low: 40-45 mg/dL Low: <40 mg/dL Ages > or = 20 years Desirable: >or= 60 mg/dL Low: <40 mg/dL Literature References: 1. Expert Panel on Integrated Guidelines for Cardiovascular Health and Risk Reduction in Children and Adolescents. Pediatrics 2011;128:S213 2. NCEP Expert Panel. Circulation 2004;110:227 Current Interpretive Data was last revised on 2018. LDL, calculated 180(H) <=129 mg/dL [facility] Comment: Interpretive Data Ages < or = 19 years Acceptable: <110 mg/dL Borderline high: 110-129 mg/dL High: >or= 130 mg/dL Ages > or = 20 years Optimal: <100 mg/dL Near optimal: 100-129 mg/dL Borderline high: 130-159 mg/dL High: >160 mg/dL Calculated using the Justin LDL-C estimating equation. This equation was implemented on 2024. Prior to this date LDL-C was estimated using the Friedewald equation. Literature References: 1. Expert Panel on Integrated Guidelines for Cardiovascular Health and Risk Reduction in Children and Adolescents. Pediatrics 2011;128:S213 2. NCEP Expert Panel. Circulation 2004;110:227 3. Justin Elizabeth et al. SETH Cardiol. 2020 September 26;5(5):540-548. doi: 10.1001/jamacardio.2020.0013 Current Interpretive Data was last revised on 2024. Non-HDL Cholesterol 207 mg/dL [facility] Comment: Interpretive Data Ages < or = 19 years Acceptable: <120 mg/dL Borderline high: 120-144 mg/dL High: >145 mg/dL Ages > or = 20 years When triglycerides are >200 mg/dL, Non-HDL cholesterol is a secondary target of therapy with treatment goals that are 30 mg/dL greater than the LDL cholesterol target. Literature References: 1. Expert Panel on Integrated Guidelines for Cardiovascular Health and Risk Reduction in Children and Adolescents. Pediatrics 2011;128:S213 2. NCEP Expert Panel. Circulation 2004;110:227 Current Interpretive Data was last revised on 2018. Chol/HDL ratio 6 [facility] Blood 09/26/2024 11:5 2 AM CDT 09/26/2024 12:23 PM CDT Narrative [facility] - 09/26/2024 1:14 PM CDT Has the patient been fasting for 8 hours or more?->Yes us Parul Cam NP LAB BLOOD ORDERABLES Final Re sult [facility] [address] [facility] Department [place] [address] * (ABNORMAL) Comprehensive metabolic panel (09/26/2024 11:52 AM CDT) Sodium 142 135 - 145 mmol/L Potassium, pl 4.1 3.3 - 4.9 mmol/L [facility] Chloride 104 97 - 110 mmol/L [facility] CO2 24 22 - 32 mmol/L [facility] Anion gap 14 2 - 15 mmol/L [facility] BUN 21 6 - 25 mg/dL [facility] Creatinine 0.78 0.60 - 1.10 mg/dL [facility] Glucose 99 70 - 199 mg/dL [facility] Comment: Interpretive Data Fasting glucose >/= 126 mg/dl is diagnostic for diabetes. Fasting is defined as no caloric intake for at least 8 hours. Fasting glucose between 100 mg/dl to 125 mg/dl is diagnostic of prediabetes. In a patient with classic symptoms of hyperglycemia or hyperglycemic crisis, a random glucose >/= 200 mg/dl is diagnostic for diabetes. In the absence of unequivocal hyperglycemia, results should be confirmed by repeat testing. The classification and Diagnosis of Diabetes Diabetes Care 2021; 46: S19-S40. Current interpretive data was last revised 2022. Calcium 9.7 8.5 - 10.3 mg/dL [facility] Bilirubin, total 0.3 0.1 - 1.2 mg/dL [facility] Protein, pl 8.0 6.5 - 8.5 g/dL [facility] Albumin 4.7 3.5 - 5.0 g/dL [facility] Alk phos 138(H) 40 - 130 Units/L [facility] ALT 8 7 - 45 Units/L [facility] AST 17 10 - 45 Units/L [facility] Blood 09/26/2024 11:5 2 AM CDT 09/26/2024 12:23 PM CDT us Parul Cam NP LAB BLOOD ORDERABLES Final Re sult [facility] [address] [facility] Department of Laboratories [place], [place] [id number] * TX AN ELECTIVE ENDOTRACHEAL AIRWAY, TX 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 (08/07/2024 11:59 AM CDT) Narrative Viola Jones CRNA - 08/07/2024 11:59 AM CDT Viola Jones CRNA 08/07/2024 12:00 PM Airway Patient location: OR Urgency: elective Indications for airway management: anesthesia Difficult airway: no Staff: Supervising provider: Glen Fraire MD DDS Placed by: VERIFICATION REP: Viola Jones CRNA Emergent airway documentation: Risks and benefits discussed: yes Consent obtained: yes Consent given by: patient Airway prep: Preoxygenated: yes Patient position: sniffing and ramp Mask difficulty assessment: 0 - not attempted Spontaneous ventilation during airway: absent Sedation level during airway: GA Final airway details: Final airway type: endotracheal airway Tube type: ETT ETT size: 7.0 mm Cuffed: yes Technique used for successful ETT placement: direct laryngoscopy Insertion site: oral Blade type: Sourav Blade size: 3 Cormack-Lehane (direct): grade I - full view of glottis Cuff volume: 8 mL Cuff inflated with: air ETT to teeth: 22 cm Placement verified by: auscultation and CO2 detection Airway secured with: silk tape Number of attempts: 1 us Glen Fraire MD, DDS ANESTHESIA ORDERABLES Deena l Result * Surgical pathology (08/07/2024 11:25 AM CDT) Tissue specimen (specimen) (Scar/Scar Tissue) 08/07/2024 11:25 AM CDT Narrative PATHOLOGY [facility] - 08/13/2024 12:11 PM CDT EPIC results best viewed via link to PDF [facility] [place] [address] Note to Patients: This report may contain a detailed description of human tissue sent by a health care provider to the laboratory for pathologic evaluation. The content of this report is essential for diagnosis and may provide important critical findings. This information may be unfamiliar to patients to review without a medical professional present. It is advised that the patient review this report in the presence of a health care provider who can answer questions and explain the details. SURGICAL PATHOLOGY REPORT FINAL Patient Name: BREONNA REMYMoses Gender: F : 1970 (Age: 54) Address: [address] [place] [address] Hospital #: [id number] Taken:08/07/2024 Received:08/07/2024 Reported: 08/13/2024 Patient Type: [facility] Service: Surgery Location: Physician(s): MD Talon Abdalla M.D. Diagnosis: Skin, left upper lip, excision: Scar sxt/08/13/2024 11:24 By this signature, I attest that the above diagnosis is based upon my personal examination of the slides(and/or other material indicated in the diagnosis). Betina Mtz M.D. Report Electronically Reviewed and Signed Out By Betina Mtz M.D. 08/13/2024 12:11:21 Microscopic Description and Comment: There is a proliferation of fibroblasts aligned parallel to the skin surface interposed among linearly arranged, thickened collagen bundles and small blood vessels. (L90.5) Microscopic slide review and interpretation for this case was performed at the Dermat[facility] Center, Department of Pathology and Immunology, [facility], [address] [place] [address], [address], [place] [address] CLIA # [id number] Lexii Kee M.D. History: The patient is a 54-year-old woman who presents with a scar of skin of upper lip. Operative procedure: Upper lip scar revision, adjacent tissue transfer. Specimen(s) Received: A: Skin, left upper lip, excision Gross Description: Received in formalin labeled with the patient's identifiers and designated left upper lip scar. Stitch velarde vascular lesion is a wedge excision of franco-pale red skin and subcutis (up to 1.6 x 0.8 cm, excised to a maximum depth of 1.0 cm). Centrally located on the skin surface is an apparent well-healed and linear scar (0.6 cm) which is perpendicular to the long axis. At one end of the scar is an apparent franco-pale red papule (0.2 cm) tagged with a black stitch previously stated to andria vascular lesion . The tagged lesion is arbitrarily assigned the 3:00 (A3). The 12-3-6 o'clock margin (apparent left lateral margin) is inked green and the 6-9-12 o'clock margin (apparent right lateral margin) is inked blue. The specimen is serially sectioned from 12-6 o'clock. No gross evidence of invasive lesion is identified. Specimen is entirely/sequentially submitted from 12-6 o'clock in A1-5; 12 o'clock tip in A1, 6 o'clock tip in A5. Jar 0. sxv/08/07/2024 14:45 PA(s): Bryon Goodson, MS, PA ([facility])CM By this signature, I attest that the above diagnosis is based upon my personal examination of the slides(and/or other material). Addenda/Procedures The performance characteristics of some immunohistochemical stains, fluorescence in-situ hybridization tests and immunophenotyping by flow cytometry cited in this report (if any) were determined by the Surgical Pathology and Flow Cytometry Departments at [facility] as part of an ongoing software quality test engineer program and in compliance with federally mandated regulations drawn from the Clinical Laboratory Improvement Act of 1988 (CLIA '88). Some of these tests rely on the use of analyte specific reagents and are subject to specific labeling requirements by the US Food and Drug Administration. Such diagnostic tests may only be performed in a facility that is certified by the Department of Health and Human Services as a high complexity laboratory under CLIA '88. The FDA has determined that such clearance or approval is not necessary. This test is used for clinical purposes. It should not be regarded as investigational or for research. Nevertheless, federal rules concerning the medical use of analyte specific reagents require that the following disclaimer be attached to the report: This test was developed and its performance characteristics determined by the Surgical Pathology and Flow Cytometry Departments of [facility]. It has not been cleared or approved by the U. S. Food and Drug Administration. IMAGES AND SCANNED DOCUMENTS, IF INCLUDED, ONLY VIEWABLE IN PDF VERSION OF REPORT us Maria Luisa Nobles MD LAB PATHOLOGY ORDERABLES Final R esult PATHOLOGY [facility] 3rd Floor [place], [place] [phone] * Differential, auto (08/05/2024 9:27 AM CDT) Neutrophil abs 4.2 1.5 - 6.5 K/cumm Imm gran abs 0.1 0.0 - 0.1 K/cumm [facility] Lymphocyte abs 2.4 0.8 - 3.3 K/cumm [facility] Monocyte abs 0.5 0.2 - 0.8 K/cumm [facility] Eosinophil abs 0.1 0.0 - 0.5 K/cumm [facility] Basophil abs 0.0 0.0 - 0.1 K/cumm [facility] Neutrophil pct 57.6 % [facility] Comment: Interpretive Data Percent cell count reference ranges are not reported, since discordance with absolute values may lead to misinterpretation of CBC data. Current Interpretive Data was last revised on 2017. Imm gran pct 0.8 % [facility] Comment: Interpretive Data Percent cell count reference ranges are not reported, since discordance with absolute values may lead to misinterpretation of CBC data. Current Interpretive Data was last revised on 2017. Lymphocyte pct 32.9 % [facility] Comment: Interpretive Data Percent cell count reference ranges are not reported, since discordance with absolute values may lead to misinterpretation of CBC data. Current Interpretive Data was last revised on 2017. Monocyte pct 6.7 % [facility] Comment: Interpretive Data Percent cell count reference ranges are not reported, since discordance with absolute values may lead to misinterpretation of CBC data. Current Interpretive Data was last revised on 2017. Eosinophil pct 1.6 % [facility] Comment: Interpretive Data Percent cell count reference ranges are not reported, since discordance with absolute values may lead to misinterpretation of CBC data. Current Interpretive Data was last revised on 2017. Basophil pct 0.4 % [facility] Comment: Interpretive Data Percent cell count reference ranges are not reported, since discordance with absolute values may lead to misinterpretation of CBC data. Current Interpretive Data was last revised on 2017. Blood 08/05/2024 9:27 AM CDT 08/05/2024 9:58 AM CDT us Maria Luisa Noblse MD LAB BLOOD ORDERABLES Final Resul t [facility] Department [place] [address] * (ABNORMAL) CBC with auto differential (08/05/2024 9:27 AM CDT) WBC 7.4 3.8 - 9.9 K/cumm Hgb 11.7(L) 11.9 - 15.5 g/dL [facility] Hct 36.0 35.6 - 45.5 % [facility] Plt 353 150 - 400 K/cumm [facility] MPV 9.9 9.1 - 12.3 fL [facility] RBC 3.94 3.90 - 5.20 M/cumm [facility] MCV 91.4 81.3 - 96.4 fL [facility] MCH 29.7 27.1 - 33.3 pg [facility] MCHC 32.5 32.3 - 35.7 g/dL [facility] RDW CV 13.1 11.1 - 14.9 % [facility] RDW SD 43.6 35.7 - 48.1 fL [facility] NRBC abs 0.00 0.00 - 0.01 K/cumm [facility] Blood 08/05/2024 9:27 AM CDT 08/05/2024 9:58 AM CDT us Maria Luisa Nobles MD LAB BLOOD ORDERABLES Final Resul t Performing Organization Address [facility] Co de Phone Number [facility] Department [place] [address] * hCG, urine, qualitative (08/05/2024 9:27 AM CDT) Pathologist [facility] HCG, ur Negative Negative Urine 08/05/2024 9:27 AM CDT 08/05/2024 9:58 AM CDT Maria Luisa Nobles MD LAB URINE ORDERABLES Final Resul t Performing Organization Address [facility] Co de [place] [address] * aPTT (08/05/2024 9:27 AM CDT) aPTT 35 28 - 38 sec Comment: Interpretive Data Heparin therapeutic range: 66.0 - 100.0 seconds. Range based on correlation with therapeutic heparin activity range of 0.3 - 0.7 Units/mL. Current interpretive data was last revised on 2023. Blood 08/05/2024 9:27 AM CDT 08/05/2024 9:58 AM CDT Maria Luisa Nobles MD LAB BLOOD ORDERABLES Final Resul t Performing Organization Address [facility] [place] [address] * Protime-INR (08/05/2024 9:27 AM CDT) PT 10.5 9.7 - 13.0 sec INR 0.97 0.90 - 1.20 [facility] Comment: Interpretive data Oral anticoagulant therapeutic ranges: Venous thromboembolism prophylaxis or treatment: 2.0-3.0 CARDIOLOGY Standard range: 2.0-3.0 High-intensity range: 2.5-3.5 Refer to indication-specific guidelines for appropriate target ranges for prosthetic heart valve replacement. Current interpretive data was last revised on 2019. Blood 08/05/2024 9:27 AM CDT 08/05/2024 9:58 AM CDT Maria Luisa Nobles MD LAB BLOOD ORDERABLES Final Resul t Performing Organization Address [facility] [place] [address] * Diagnostic Mammogram (09/17/2021) Anatomical Region Laterality Modality Breast Mammography Historical Provider IMG MAMMO PROCEDURES Deena l Result * Colonoscopy (11/12/2019) Anatomical Region Laterality Modality Other us Historical Provider ENDOSCOPY PROCEDURES Deena l Result from Last 3 Months or Most Recently Relevant to Health Maintenance Insurance [employer] [address] [place] [address] WORKERS COMPENSATION GENERIC Care Teams Stitch 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
--- OUTSIDE RECORDS SUMMARY | 2024-10-22 09:26 | XMS_ITS | Clinical Summary ---
Author Organization [facility] Address [address] [place] [address] Phone Care Team Providers Care Bull Gang Supervisor Name Role Phone Maryam Dueñas MD Primary Care Provider [phone] Allergies No known active allergies Medications ALPRAZolam (XANAX) 1 mg tablet alprazolam 1 mg tablet TAKE 1 TABLET BY MOUTH THREE TIMES DAILY NEEDED 1 Active busPIRone (BUSPAR) 7.5 mg Tablet Take 30 mg by mouth 2 times daily. Active fluticasone-ume clidinium-vilan terol (Trelegy Ellipta) 100-62.5-25 mcg Disk with Device Take 1 Puff by inhalation daily. 2 Active ibuprofen (MOTRIN) 800 mg tablet TAKE 1 TABLET BY MOUTH THREE TIMES DAILY NEEDED WITH FOOD 2 Active celecoxib (CeleBREX) 200 mg capsule Take 1 Capsule (200 mg) by mouth daily. 60 Capsule 3 Active sertraline (ZOLOFT) 100 mg tablet Take 100 mg by mouth daily. 4 Active pantoprazole (PROTONIX) 40 mg Tablet, Delayed Release (E.C.) Take 40 mg by mouth daily. Active acetaminophen (TYLENOL) 500 mg tablet Take 1,000 mg by mouth every 8 hours as needed. Active acetaminophen (TYLENOL) 500 mg tablet Take 2 Tablets (1,000 mg) by mouth every 8 hours. 90 Tablet 08/22/2023 10:28 AM CDT 4 Active docusate sodium (COLACE) 100 mg capsule Take 1 Capsule (100 mg) by mouth 2 times daily. 60 Capsule 08/22/2023 10:28 AM CDT 4 Active polyethylene glycol 3350 (MIRALAX) 17 gram/dose Powder Take 1 Scoop (17 Grams) by mouth daily. 238 Gram 08/22/2023 10:28 AM CDT 4 Active cephALEXin (KEFLEX) 500 mg capsule Take all four pills one hour prior to procedure 4 Capsule 2 4 Active Active Problems Problem Noted Date Diagnosed Date Preoperative general physical examination 2023 Morbid obesity with body mass index of 40.0-49.9 08/10/2023 Dyslipidemia 08/10/2023 GERD without esophagitis 08/10/2023 Muscle spasm 08/10/2023 History of tobacco use 08/10/2023 Chronic bronchitis 08/10/2023 Primary osteoarthritis of right knee 12/05/2022 Major depressive disorder with current active ep isode 02/22/2022 Anxiety 02/22/2022 History of partial hysterectomy 02/22/2022 Bilateral primary osteoarthritis of knee 022 Restless legs syndrome (RLS) 02/21/2022 Encounters Date Type Department Care Team Description 10/17/2024 External Device Data [facility]STRACTION Provider, Abstract 10/17/2024 External Device Data [facility] Provider, Abstract 10/16/2024 External Device Data [facility] Provider, Abstract 10/15/2024 External Device Data [facility] Provider, Abstract 09/10/2024 External Device Data [facility] Provider, Abstract 08/27/2024 External Device Data [facility]CTION Provider, Abstract 08/14/2024 Telephone [facility] [address] [place] [address] Minoo Bagley MD Question from Last 3 Months Immunizations Immunization Administration Dates Next Due (ADACEL/BOOSTRIX)(10 YR UP) TDAP VACCINE, 0.5ML, IM 02/21/2022 INFLUENZA VACCINE QUADRIVALENT 6 MOS UP PF IM Family History Medical History Relation Name Comments Heart Disease Father Stents x 2 Breast Cancer Paternal Aunt 1 Breast Cancer Paternal Aunt 2 Relation Name Status Comments Father Paternal Aunt 1 Paternal Aunt 2 Alive Social History Tobacco Use Types Packs/Day Years Used Date Smoking Tobacco: Former Cigarettes 1 10 S tarted: 2007 Smokeless Tobacco: Never Tobacco Cessation:Counseling Given: Not Answered Alcohol Use Standard Drinks/Week Comments Not Currently 0 (1 standard drink = 0.6 oz pur e alcohol) Feeling Safe Answer Date Recorded Are you in a relationship wi th someone who hurts you emotionally and/or physically? No 03/16/2024 Food Insecurity Answer Date Recorded Social/Environmental Concerns No concerns Transportation Needs Answer Date Record ed Social/Environmental Concerns No concerns Housing Stability Answer Date Recorded Social/Environmental Concerns No concerns Utility Needs Answer Date Recorded Social/Environmental Concerns No concerns Comments No Sex and Gender Information Value Date Recorded Sex Assigned at Not on file Legal Sex Female 12:00 AM SITE ADMINISTRATOR Gender Identity Not on file Sexual Orientation Not on file Last Filed Vital Signs Vital Sign Reading Time Taken Comments Blood Pressure 163/94 04/04/2024 10:54 AM SITE ADMINISTRATOR Pulse 82 04/04/2024 10:54 AM SITE ADMINISTRATOR Temperature 36.8 C (98.2 F) 04/04/2024 10:54 AM SITE ADMINISTRATOR Respiratory Rate 18 04/04/2024 10:54 AM SITE ADMINISTRATOR Oxygen Saturation 95% 04/04/2024 10:54 AM SITE ADMINISTRATOR Inhaled Oxygen Concentration - - Weight 113.4 kg (250 lb) 04/04/2024 10:54 AM SITE ADMINISTRATOR Height 162.6 cm (5' 4 ) 04/04/2024 10:54 AM SITE ADMINISTRATOR Body Mass Index 42.91 04/04/2024 10:54 AM SITE ADMINISTRATOR Plan of Treatment Health Maintenance Due Date Last Done Comments HEPATITIS B VACCINES (1 of 3 - 19+ 3-dose series) 1990 HPV/Cotest (21-29) 02/28/1992 HPV/Cotest (30-65) 2001 FIT-DNA Q 3 years 02/28/2016 FIT/FOBT Q 1 year 02/28/2016 Flex Sig/CT Colonography Q 5 years 02/28/2016 INFLUENZA VACCINE (#1) 2023 , 02/21/2022, 05/23/2021, Additional history exists COVID-19 Vaccine (2023-2 5 season) 2024 06/11/2021, 11/10/2020, 10/13/2020 Preventative Visit- Commercial 05/29/2024 07/22/2022 BREAST CANCER SCREENING 02/01/2025 02/02/20, 12/09/2022, 12/09/2022, Additional history exists Pre-Diabetes and Diabetes Screening 03/15/2025 03/15/2022 COLORECTAL SCREENING 01/27/2030 01/28/2020, 11/12/2019, 11/12/2019 Colorectal Cancer Screening 01/27/2030 DTAP/TDAP/TD VACCINES (3 - T d or Tdap) 02/22/2032 02/21/2022, 09/12/2017 ZOSTER VACCINE Completed 07/28/2021, 05/23/2021 CERVICAL CANCER SCREENING Discontinued PAP SMEAR Discontinued Medical Devices Implanted Type Area Lpn Medical Assistant Device Identifier Shelf Expiration Date Model / Serial / Lot Cement Palacos Mv Pro 80 Hip Knee Antimicrob [id number] - [id number] Implanted:Qty: 1 on 08/21/2023 by Minoo Bagley MD at [facility] Cement Right: Knee [employer] [id number] 05/28/2025 [id number] / / [id number] Comp Tib Attune Fb Cmnt Sz5 1506-70-005 - [id number] Implanted:Qty: 1 on 08/21/2023 by Minoo Bagley MD at [facility] Knee Right: Knee [employer] [id number] 05/28/2033 [id number] / / [id number] Comp Fem Attune Ps Sz 5 Rt Cmntd 1504-10-205 - [id number] Implanted:Qty: 1 on 08/21/2023 by Minoo Bagley MD at [facility] Knee Right: Knee [employer] [id number] 06/28/2033 [id number] / / [id number] Insert Attune Fb Ps Sz5 8mm 1516-40-508 - [id number] Implanted:Qty: 1 on 08/21/2023 by Minoo Bagley MD at [facility] Knee Right: Knee [employer] [id number] 05/28/2028 [id number] / / [id number] Patella Attune Becky 35mm 1518-10-035 - [id number] Implanted:Qty: 1 on 08/21/2023 by Minoo Bagley MD at [facility] Knee Right: Knee [employer] [id number] 06/28/2028 [id number] / / [id number] Explanted Type Area Lpn Medical Assistant Device Identifier Shelf Expiration Date Model / Serial / Lot Acl Screw Explanted:Qty: 2 on 08/21/2023 by Minoo Bagley MD at [facility] Right: Knee Description:intact Procedures Procedure Name Priority Date/Time Associated Diagnosis Comments MAMMO 3D [place] SCREEN BILAT W OR WO CAD Routine 02/02/2024 12:06 PM CDT Visit for screening mammogram HEMOGLOBIN A1C Routine 03/15/2022 10:53 AM CDT Major depressive disorder with current active episode, unspecified depression episode severity, unspecified whether recurrent from Last 3 Months or Most Recently Relevant to Health Maintenance Results * MAMMO 3D [place] SCREEN BILAT W OR WO CAD (02/02/2024 12:06 PM CDT) Anatomical Region Laterality Modality Breast Bilateral Mammography 02/02/2024 12:0 6 PM CDT Impressions 02/02/2024 1:36 PM CDT IMPRESSION: No mammographic evidence of malignancy. RECOMMENDATIONS: Routine screening mammogram in one year. DICTATION LOCATION: [facility] 02/02/2024 1:36 PM CDT BILATERAL FULL-FIELD DIGITAL SCREENING MAMMOGRAM WITH CAD WITH 3D TOMOSYNTHESIS DATE: 02/02/2024 12:06 PM HISTORY: Routine screening. TECHNIQUE: Full-field digital craniocaudal and mediolateral oblique projections of both breasts were obtained. Low-dose full-field digital breast tomosynthesis examination was performed with 2D and 3D acquisitions. Examination is read in conjunction with computer aided detection. COMPARISON: 2022, 2019 BREAST COMPOSITION: There are scattered areas of fibroglandular density. FINDINGS: No suspicious mass, suspicious microcalcifications, or architectural distortion in either breast is identified. Since the prior study, there has been no significant interval change. The computer aided diagnosis detects no significant abnormality. OVERALL FINAL ASSESSMENT: BI-RADS CATEGORY 1 : Negative Procedure Note Fernando Hernadez MD - 02/02/2024 BILATERAL FULL-FIELD DIGITAL SCREENING MAMMOGRAM WITH CAD WITH 3D TOMOSYNTHESIS DATE: 02/02/2024 12:06 PM HISTORY: Routine screening. TECHNIQUE: Full-field digital craniocaudal and mediolateral oblique projections of both breasts were obtained. Low-dose full-field digital breast tomosynthesis examination was performed with 2D and 3D acquisitions. Examination is read in conjunction with computer aided detection. COMPARISON: 2022, 2019 BREAST COMPOSITION: There are scattered areas of fibroglandular density. FINDINGS: No suspicious mass, suspicious microcalcifications, or architectural distortion in either breast is identified. Since the prior study, there has been no significant interval change. The computer aided diagnosis detects no significant abnormality. OVERALL FINAL ASSESSMENT: BI-RADS CATEGORY 1 : Negative IMPRESSION: No mammographic evidence of malignancy. RECOMMENDATIONS: Routine screening mammogram in one year. DICTATION LOCATION: [facility] Maryam Dueñas MD MAMMO ORDERABLES Final Result * HEMOGLOBIN A1C (03/15/2022 10:53 AM CDT) HEMOGLOBIN A1C 5.4 <5.7 % of total Hgb [facility] Comment: For the purpose of screening for the presence of diabetes: <5.7% Consistent with the absence of diabetes 5.7-6.4% Consistent with increased risk for diabetes (prediabetes) > or =6.5% Consistent with diabetes This assay result is consistent with a decreased risk of diabetes. Currently, no consensus exists regarding use of hemoglobin A1c for diagnosis of diabetes in children. According to [place] Diabetes Association (ADA) guidelines, hemoglobin A1c <7.0% represents optimal control in non- diabetic patients. Different metrics may apply to specific patient populations. Standards of Medical Care in Diabetes(ADA). ESTIMATED AVERAGE GLUCOSE (MG/DL) 108 mg/dL [facility] ESTIMATED AVERAGE GLUCOSE (MMOL/L) 6.0 mmol/L [facility] Comment: FASTING:YES FASTING: YES Test Performed at: [facility] [id number] [id number] Kemar Steele D.O., MPH Blood 03/15/2022 10:5 3 AM CDT 03/15/2022 10:54 AM CDT us Katya Brewer NP CHEMISTRY ORDERABLES Final Resul t [facility] [phone] [facility] [address] [place] [address] from Last 3 Months or Most Recently Relevant to Health Maintenance Insurance * Guarantor: BREONNA REMY Account Type Relation to Patient Date of Phone Billing Address Personal/Family [id number] [place] [address] RX [employer] (INTERNAL) [facility] Commercial RX [facility] Commercial [facility] [employer] COMP [facility] Advance Directives For more information, please contact: [phone] * Default Full Code - Needs Discussion (Latest Code Status on File) Date Activated Date Inactivated Comments 08/21/2023 3:05 PM 08/22/2023 2:18 PM * Full Code Date Activated Date Inactivated Comments 08/21/2023 9:51 AM 08/21/2023 3:05 PM Care Teams Bull Gang Supervisor Relationship Specialty Start Date End Date Maryam Dueñas MD [address] [place] [address] PCP - General Internal Medicine 04/12/22
--- OUTSIDE RECORDS SUMMARY | 2024-10-22 09:27 | XMS_ITS | Clinical Summary ---
Author Organization [address] Address [address] [place] [phone] Care Team Providers Care Editorial Writer Name Role Phone Parul Cam NP Primary Care Provider [phone] Allergies No known active allergies Medications busPIRone [...] Bronchitis 04/17/2017 09/26/2024 Contusion of upper limb 04/17/201705/2024 Overview (06/24/2024): LUE Venereal disease screening 10/12/2016 0 09/26/2024 Depressive disorder 10/12/2016 09/27/19 25 Thyroid nodule 10/12/2016 09/26/2024 Cigarette nicotine dependenc e without complication 10/12/2016 09/26/2024 Morbid obesity with body mas s index of 40.0-49.9 10/12/2016 09/26/2024 Insomnia 10/12/2016 09/26/2024 Assessment & Plan (10/16/2023 9:30 AM CDT): Patient have tried and failed ambien and lunesta in the past. Encounters Date Type Department Care Team Description 10/18/2024 12:30 PM CDT Telemedicine [facility] Medicine at [address] [place] [address] Parul Cam NP Healthcare maintenance (Primary Dx); Mucopurulent chronic bronchitis (HCC); ANDREW (generalized anxiety disorder); Psychophysiologic insomnia; Mixed hyperlipidemia; Multiple joint pain; Closed nondisplaced fracture of distal phalanx of right index finger with routine healing, subsequent encounter 10/02/2024 Results Follow-Up [facility] at [address] [place] [address] Parul Cam NP BEVERLY ab ql w/rflx to BEVERLY qn, Rheumatoid factor, CRP (acute phase), Additional followed-up results: 12 09/26/2024 11:40 AM CDT Lab [facility] Medical Office Bldg [address] OP [address] [place] [address] [address] [place] [address] Multiple joint pain; Healthcare maintenance; Need for hepatitis B screening test; Encounter for hepatitis C screening test for low risk patient; Vitamin D deficiency 09/26/2024 11:00 AM CDT Office Visit [facility] at [address] [place] [phone] Parul Cam NP Multiple joint pain (Primary [...] (HCC) 08/12/2024 3:45 PM CDT Office Visit [facility] [address] [place] [address] Advanced Medicine 6th [place] [address] [place] [address] Maria Luisa Nobles MD Lip laceration, initial encounter (Primary Dx) 08/07/2024 10:20 AM CDT - 08/07/2024 12:15 PM CDT Surgery [facility] Operating [facility] ([facility]) [address] [place] [address] Maria Luisa Nobles MD REVISION SCAR - FACE - LEFT upper lip scar revision 08/07/2024 10:11 AM CDT Anesthesia Event [facility] Operating [facility] ([facility]) [address] [place] [address] Glen Fraire MD DDS Figura, Renee Michelle, NP 08/07/2024 8:04 AM CDT - 08/07/2024 2:35 PM CDT Hospital Encounter [facility] Operating Room [facility] ([facility]) [address] [place] [address] Maria Luisa Nobles MD Scar of skin of upper lip Discharge Disposition: Discharge to home or self care 08/05/2024 9:15 AM CDT Lab [facility] ([facility]) [address] [place] [phone] Scar of vermilion border of upper lip 08/02/2024 Orders Only [facility] [address] [place] [address] 6th [place] [address] [place] [address] Diana Craig, RN Scar of vermilion border of upper lip (Primary Dx) from Last 3 Months Immunizations Immunization Administration Dates Next Due DTaP [...] Tdap 02/21/2022,09/12/2017,01/03/2013 Varicella 02/19/2007,06/10/2002 ZOSTER Recombinant 07/28/2021,05/23/2021 Surgical History Surgery Date Site/Laterality Comments HYSTERECTOMY 05/29/2002 - 05/28/2003 Partial KNEE SURGERY Right after 2002 REPLACEMENT TOTAL KNEE 08/21/2023 Right COLONOSCOPY 05/29/2019 - 05/28/2020 RHINOPLASTY 08/07/2024 Face/N/A Procedure: ANTERIOR RHINOSCOPY; Surgeon: Jaja Franklin MD; Location: [facility] OR POD 4; Service: Otolaryngology; Laterality: N/A; Medical History Medical History Date Comments GERD (gastroesophageal reflux disease) 2019 Anxiety 2015 Chronic bronchitis (HCC) ?? 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 Gender Identity Female 11/18/2020 6:45 AM CDT Sexual Orientation Straight 11/18/2020 6: 45 AM CDT Obstetrics History Last Filed Vital Signs Vital Sign Reading [...] 09/26/2024 10:53 AM CDT Plan of Treatment Health Maintenance Due Date Last Done Comments Breast Cancer Screening-Mammogram 02/01/2025 02/02/2024, 02/02/2024, 12/09/2022, Additional history exists Depression Screening 09/26/2025 09/26/2024, 09/26/2024, 06/29/2023, Additional history exists Regular Well Visit/Exam 18-64 09/26/2025 09/26/2024, 07/22/2022 Colon Cancer Screening-Colonoscopy 11/11/20292019 DTaP/Tdap/Td Vaccine (9 - Td or Tdap) 02/22/2032 02/21/2022, 09/12/2017, 01/03/2013, Additional history exists Pneumococcal vaccine <65 Completed 022, 10/07/2002, 06/10/2002, Additional history exists Zoster Vaccine Completed 07/28/2021, 05/23/2021 Covid-19 Vaccine Completed 02/03/2024, 06/2022, 04/02/2022, Additional history exists Influenza Vaccine Completed 02/03/2024, , 02/21/2022, Additional history exists Hepatitis B Screening Completed 09/26/2024 , 11/05/2001, 06/26/2001, Additional history exists Hepatitis C Screening Completed 09/26/2024 Medical Devices Implanted Type Area Administrative Accountant Device Identifier Shelf Expiration Date Model / [...] CDT Need for hepatitis B screening test PA 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 Routine 08/07/2024 11:59 AM CDT PA AN ELECTIVE ENDOTRACHEAL AIRWAY Routine 08/07/2024 11:59 [...] last revised on 2020. Testing performed by: [facility], [address] [place]., [address] Blood 09/26/2024 11:5 2 AM CDT 09/26/2024 3:03 PM CDT Parul Cam NP LAB BLOOD ORDERABLES Final Re sult [facility] [address] [facility] [place] [address] * eGFR (09/26/2024 11:52 AM CDT) eGFR [...] of Race in Diagnosing Kidney Disease, JASN 202). The CKD-EPI equation should not be used for patients with unstable renal function and has not been validated in children and those over 70. Current interpretive data was last reviewed 2021. Blood 09/26/2024 11:5 2 AM CDT 09/26/2024 12:23 PM CDT Parul Cam NP LAB BLOOD ORDERABLES Final Re sult [facility] [address] [facility] [place] [address] * Differential, auto (09/26/2024 11:52 AM CDT) Neutrophil abs 4.05 1.50 - 6.50 K/cumm Imm gran abs 0.01 0.00 - 0.10 K/cumm [facility] Lymphocyte abs 1.98 0.80 - 3.30 K/cumm [facility] Monocyte abs 0.52 0.20 - 0.80 K/cumm [facility] Eosinophil abs 0.08 0.00 - 0.50 K/cumm [facility] Basophil abs 0.04 0.00 - 0.10 K/cumm [facility] Neutrophil pct 60.7 % [facility] Comment: Interpretive Data Percent cell count reference ranges are not reported, since discordance with absolute values may lead to misinterpretation of CBC data. Current Interpretive Data was last revised on 2017. Imm gran pct 0.1 % [facility] Comment: Interpretive Data Percent cell count reference ranges are not reported, since discordance with absolute values may lead to misinterpretation of CBC data. Current Interpretive Data was last revised on 2017. Lymphocyte pct 29.6 % [facility] Comment: Interpretive Data Percent cell count reference ranges are not reported, since discordance with absolute values may lead to misinterpretation of CBC data. Current Interpretive Data was last revised on 2017. Monocyte pct 7.8 % [facility] Comment: Interpretive Data Percent cell count reference ranges are not reported, since discordance with absolute values may lead to misinterpretation of CBC data. Current Interpretive Data was last revised on 2017. Eosinophil pct 1.2 % [facility] Comment: Interpretive Data Percent cell count reference ranges are not reported, since discordance with absolute values may lead to misinterpretation of CBC data. Current Interpretive Data was last revised on 2017. Basophil pct 0.6 % [facility] Comment: Interpretive Data Percent cell count reference ranges are not reported, since discordance with absolute values may lead to misinterpretation of CBC data. Current Interpretive Data was last revised on 2017. Blood 09/26/2024 11:5 2 AM CDT 09/26/2024 12:24 PM CDT Parul Cam BRANCH BILLING PAYROLL CLERK LAB BLOOD ORDERABLES Final Re sult Performing Organization Address [facility] de Phone Number [address] [address] * Thyroid Function Ellis (09/26/2024 11:52 AM CDT) TSH 1.09 0.30 - 4.20 mcIUnit/mL Blood 09/26/2024 11:5 2 AM CDT 09/26/2024 12:23 PM CDT Parul Cam BRANCH BILLING PAYROLL CLERK LAB BLOOD ORDERABLES Final Re sult Performing Organization Address [facility] de Phone Number [address] [address] * (ABNORMAL) CBC with auto differential (09/26/2024 11:52 AM CDT) WBC 6.68 3.80 - 9.90 K/cumm Hgb 13.1 11.9 - 15.5 g/dL [facility] Hct 41.8 35.6 - 45.5 % [facility] Plt 379 150 - 400 K/cumm [facility] MPV 9.5 9.1 - 12.3 fL [facility] RBC 4.52 3.90 - 5.20 M/cumm [facility] MCV 92.5 81.3 - 96.4 fL [facility] MCH 29.0 27.1 - 33.3 pg [facility] MCHC 31.3(L) 32.3 - 35.7 g/dL [facility] RDW CV 13.5 11.1 - 14.9 % [facility] RDW SD 46.0 35.7 - 48.1 fL [facility] NRBC abs 0.00 0.00 - 0.01 K/cumm [facility] Blood 09/26/2024 11:5 2 AM CDT 09/26/2024 12:24 PM CDT Parul Cam NP LAB BLOOD ORDERABLES Final Re sult Performing Organization Address [facility] Co de Phone Number [address] [address] * Hepatitis C antibody Blood (09/26/2024 11:52 [...] OR DERABLES Final Result Performing Organization Address [facility] de Phone Number [address] [address] * Hepatitis B core antibody, total Blood (09/26/2024 11:52 AM CDT) Hep B core IgG/IgM Nonreactive Nonreactive Comment:Testing performed by : [facility], [address] [facility], [place]., [address] Blood 09/26/2024 11:5 2 AM CDT 09/26/2024 3:03 PM CDT Parul Cam NP LAB MICROBIOLOGY - GENERAL OR DERABLES Edited Result - Final Performing Organization Address [facility] Co de Phone Number MILLI [address] [employer] ([employer] [place] [address] * Vitamin D 25 hydroxy (09/26/2024 11:52 AM CDT) [facility] Vitamin D 25-OH 31.0 30.0 - 80.0 ng/mL Blood 09/26/2024 11:5 2 AM CDT 09/26/2024 12:23 PM CDT Parul Cam NP LAB BLOOD ORDERABLES Final Re sult Performing Organization Address [facility] Co de Phone Number [address] [employer] [place] [address] * Hepatitis B surface antibody (immune status) Blood (09/26/2024 11:52 AM CDT) [facility] HBsAb (immune status) Reactive Comment: Interpretive Data [...] HBsAb (immune status) index 969.0 mIUnits/m L [facility] Blood 09/26/2024 11:5 2 AM CDT 09/26/2024 12:23 PM CDT Parul Cam NP LAB MICROBIOLOGY - GENERAL OR DERABLES Final Result Performing Organization Address [facility] Co de Phone Number [address] [employer]) [place] [address] * Hepatitis B Surface Antigen Blood (09/26/2024 11:52 AM CDT) [facility] HepBsAg Nonreactive Nonreactive Blood 09/26/2024 11:5 2 AM CDT 09/26/2024 12:23 PM CDT Parul Cam NP LAB MICROBIOLOGY - GENERAL OR DERABLES Final Result Performing Organization Address City/[facility]/ZIP Co de Phone Number MILLI [address] [employer] ([employer]) [place] [address] * Erythrocyte sedimentation rate (09/26/2024 11:52 AM CDT) Erythrocyte sedimentation rate 23 1 - 30 mm/hr Blood 09/26/2024 11:5 2 AM CDT 09/26/2024 12:24 PM CDT Parul Cam NP LAB BLOOD ORDERABLES Final Re sult Performing Organization Address [facility] Co de Phone Number MILLI [address] [employer] ([employer]) [place] [address] * Rheumatoid factor (09/26/2024 11:52 AM CDT) Rheumatoid factor, quant <10.0 <=15.0 IUnits/mL Blood 09/26/2024 11:5 2 AM CDT 09/26/2024 12:23 PM CDT Parul Cam NP LAB BLOOD ORDERABLES Final Re sult Performing Organization Address [facility]/ZIP Co de Phone Number MILLI [address] [employer] [place] [address] * CRP (acute phase) (09/26/2024 11:52 AM CDT) CRP 4.8 <=10.0 mg/L Blood 09/26/2024 11:5 2 AM CDT 09/26/2024 12:23 PM CDT Parul Cam NP LAB BLOOD ORDERABLES Final Re sult Performing Organization Address City/[facility]/ZIP Co de Phone Number MILLI [address] [place] [address] * (ABNORMAL) Lipid panel (09/26/2024 11:52 AM [...] NCEP Expert Panel. Circulation 2004;110:227 3. Justin M et al. SETH Cardiol. 2020 September 26;5(5):540-548. [...] LAB BLOOD ORDERABLES Final Re sult [facility]I URIBE [address] [facility] [place] [address] * (ABNORMAL) Comprehensive metabolic panel (09/26/2024 11:52 AM CDT) Sodium 142 135 - 145 mmol/L Potassium, pl 4.1 3.3 - 4.9 mmol/L [facility] Chloride 104 97 - 110 mmol/L [facility] CO2 24 22 - 32 mmol/L [facility] Anion gap 14 2 - 15 mmol/L [facility] BUN 21 6 - 25 mg/dL [facility] Creatinine 0.78 0.60 - 1.10 mg/dL [facility] Glucose 99 70 - 199 mg/dL [facility] Comment: Interpretive Data Fasting glucose >/= [...] 2022. Calcium 9.7 8.5 - 10.3 mg/dL [facility] Bilirubin, total 0.3 0.1 - 1.2 mg/dL [facility] Protein, pl 8.0 6.5 - 8.5 g/dL [facility] Albumin 4.7 3.5 - 5.0 g/dL [facility] Alk phos 138(H) 40 - 130 Units/L [facility] ALT 8 7 - 45 Units/L [facility] AST 17 10 - 45 Units/L [facility] Blood 09/26/2024 11:5 2 AM CDT 09/26/2024 12:23 PM CDT us Parul Cam NP LAB BLOOD ORDERABLES Final Re sult [facility] [address] [facility] [place] [address] * PA AN ELECTIVE ENDOTRACHEAL AIRWAY, PA 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 (08/07/2024 11:59 AM CDT) Narrative Viola Jones CRNA - 08/07/2024 11:59 AM CDT Viola Jones CRNA 08/07/2024 12:00 PM Airway Patient location: OR Urgency: elective Indications for airway management: anesthesia Difficult airway: no Staff: Supervising provider: Glen Fraire MD DDS Placed by: WEAVING LOOM OPERATOR: Viola Jones CRNA Emergent airway documentation: Risks [...] Glen Fraire MD, DDS ANESTHESIA ORDERABLES Deena lagos Result * Surgical pathology (08/07/2024 11:25 AM CDT) Tissue specimen (specimen) (Scar/Scar Tissue) 08/07/2024 11:25 AM CDT Narrative PATHOLOGY [facility] - 08/13/2024 12:11 PM CDT EPIC results best viewed via link to PDF [facility] [place] [address] Note to Patients: This report may contain [...] SURGICAL PATHOLOGY REPORT FINAL Patient Name: BREONNA REMY Gender: F : 1970 (Age: 54) Address: [address] [place] [address] [facility] #: [id number] Taken:08/07/2024 Received:08/07/2024 Reported: 08/13/2024 [facility]: Surgery Location: Physician(s): MD Talon Abdalla [...] Dermatopathology Center, Department of Pathology and Immunology, [facility], [facility]0 [facility], [address], [address] # [id number] Lexii Kee M.D. History: The patient is [...] sxv/08/07/2024 14:45 PA(s): Bryon Goodson, MS, PA ([facility])CM By this signature, I attest that the above diagnosis is based upon my personal examination of the slides(and/or other material). Addenda/Procedures The performance characteristics of some immunohistochemical stains, fluorescence in-situ hybridization tests and immunophenotyping by flow cytometry cited in this report (if any) were determined by the Surgical Pathology and Flow Cytometry Departments at [facility] as part of an ongoing quality assurance consultant program and in compliance with federally mandated [...] Surgical Pathology and Flow Cytometry Departments of [facility]. It has not been cleared or approved by the U. S. Food and Drug Administration. IMAGES AND SCANNED DOCUMENTS, IF INCLUDED, ONLY VIEWABLE IN PDF VERSION OF REPORT us Maria Luisa Nobles MD LAB PATHOLOGY ORDERABLES Final R esult PATHOLOGY [facility] 3rd Floor [place], [place] [phone] * Differential, auto (08/05/2024 9:27 AM CDT) Neutrophil abs 4.2 1.5 - 6.5 K/cumm Imm gran abs 0.1 0.0 - 0.1 K/cumm [facility] Lymphocyte abs 2.4 0.8 - 3.3 K/cumm [facility] Monocyte abs 0.5 0.2 - 0.8 K/cumm [facility] Eosinophil abs 0.1 0.0 - 0.5 K/cumm [facility] Basophil abs 0.0 0.0 - 0.1 K/cumm [facility] Neutrophil pct 57.6 % [facility] Comment: Interpretive Data Percent cell count reference ranges are not reported, since discordance with absolute values may lead to misinterpretation of CBC data. Current Interpretive Data was last revised on 2017. Imm gran pct 0.8 % [facility] Comment: Interpretive Data Percent cell count reference ranges are not reported, since discordance with absolute values may lead to misinterpretation of CBC data. Current Interpretive Data was last revised on 2017. Lymphocyte pct 32.9 % [facility] Comment: Interpretive Data Percent cell count reference ranges are not reported, since discordance with absolute values may lead to misinterpretation of CBC data. Current Interpretive Data was last revised on 2017. Monocyte pct 6.7 % [facility] Comment: Interpretive Data Percent cell count reference ranges are not reported, since discordance with absolute values may lead to misinterpretation of CBC data. Current Interpretive Data was last revised on 2017. Eosinophil pct 1.6 % [facility] Comment: Interpretive Data Percent cell count reference ranges are not reported, since discordance with absolute values may lead to misinterpretation of CBC data. Current Interpretive Data was last revised on 2017. Basophil pct 0.4 % [facility] Comment: Interpretive Data Percent cell count reference ranges are not reported, since discordance with absolute values may lead to misinterpretation of CBC data. Current Interpretive Data was last revised on 2017. Blood 08/05/2024 9:27 AM CDT 08/05/2024 9:58 AM CDT us Maria Luisa Nobles MD LAB BLOOD ORDERABLES Final Resul t [facility] [place] [address] * (ABNORMAL) CBC with auto differential (08/05/2024 9:27 AM CDT) WBC 7.4 3.8 - 9.9 K/cumm Hgb 11.7(L) 11.9 - 15.5 g/dL [facility] Hct 36.0 35.6 - 45.5 % [facility] Plt 353 150 - 400 K/cumm [facility] MPV 9.9 9.1 - 12.3 fL [facility] RBC 3.94 3.90 - 5.20 M/cumm [facility] MCV 91.4 81.3 - 96.4 fL [facility] MCH 29.7 27.1 - 33.3 pg [facility] MCHC 32.5 32.3 - 35.7 g/dL [facility] RDW CV 13.1 11.1 - 14.9 % [facility] RDW SD 43.6 35.7 - 48.1 fL [facility] NRBC abs 0.00 0.00 - 0.01 K/cumm [facility] Blood 08/05/2024 9:27 AM CDT 08/05/2024 9:58 AM CDT us Maria Luisa Nobles MD LAB BLOOD ORDERABLES Final Resul t Performing Organization Address City/[facility] Co de Phone Number [facility] [place] [address] * hCG, urine, qualitative (08/05/2024 9:27 AM CDT) Pathologist [facility] HCG, ur Negative Negative Urine 08/05/2024 9:27 AM CDT 08/05/2024 9:58 AM CDT Maria Luisa Nobles MD LAB URINE ORDERABLES Final Resul t Performing Organization Address City/[facility] Co de Phone Number [facility] [place] [address] * aPTT (08/05/2024 9:27 AM CDT) aPTT [...] ORDERABLES Final Resul t Performing Organization Address [facility] [place] [address] * Protime-INR (08/05/2024 9:27 AM CDT) PT 10.5 9.7 - 13.0 sec INR 0.97 0.90 - 1.20 [facility] Comment: Interpretive data Oral anticoagulant therapeutic [...] ORDERABLES Final Resul t Performing Organization Address City/[facility]/ZIP Co [place] [address] * Diagnostic Mammogram (09/17/2021) Anatomical Region Laterality Modality Breast Mammography Historical Provider IMG MAMMO PROCEDURES Deena l Result * Colonoscopy (11/12/2019) Anatomical Region Laterality Modality Other us Historical Provider ENDOSCOPY PROCEDURES Deena lagos Result from Last 3 Months or Most Recently Relevant to Health Maintenance Insurance [employer] Care Teams Editorial Writer Relationship Specialty Start Date End Date Parul Cam NP [address] [place] [address] [place] [id number] PCP - General Family Medicine 09/26/24
--- OUTSIDE RECORDS SUMMARY | 2024-10-22 09:27 | XMS_ITS | Referral Summary ---
Author Organization [facility] Address [address] [place] [address] Phone Care Team Providers Care Outdoor Landscape Architect Name Role Phone Unavailable Primary Care Provider Unavailabl e Allergies No known active allergies Medications citalopram (CeleXA) 40 mg tablet Take 40 mg by mouth 1 (one) time each day. 1 Active ALPRAZolam (Xanax) 1 mg tablet Take 1 mg by mouth 3 (three) times a day. 1 Active ibuprofen (Advil,Motrin) 800 mg tablet Take 800 mg by mouth every 8 (eight) hours if needed. 8 Active fluticasone (Flonase) 50 mcg/actuation nasal spray Administer 1 spray into each nostril 1 (one) time each day. Shake gently. Before first use, prime pump. After use, clean tip and replace cap. Active ergocalciferol (Vitamin D-2) 1,250 mcg (50,000 unit) capsule Take 1 capsule by mouth 1 (one) time per week. 1 Active DM/pseudoephed/ acetaminophen (VICKS DAYQUIL ORAL) Take 2 capsules by mouth 1 (one) time. Active pseudoephedrine (Sudafed) 30 mg tablet Take 30 mg by mouth 1 (one) time. Active Active Problems No known active problems Social History Tobacco Use Types Packs/Day Years Used Date Smoking Tobacco: Former Cigarettes Smokeless Tobacco: Never Tobacco Cessation:Counseling Given: No Comments:Patient quit 06/2020 Alcohol Use Standard Drinks/Week Comments Never 0 (1 standard drink = 0.6 oz pur e alcohol) AUDIT-C Answer Date Recorded Q1: How often do you have a drink containing alc ohol? Never 09/29/2020 Q2: How many drinks containi ng alcohol do you have on a typical day when you are drinking? Not asked 09/29/2020 Q3: How often do you have six or more drinks on one occasion? Never 09/29/2020 Comments Unknown Sex and Gender Information Value Date Recorded Sex Assigned at Not on file Legal Sex Female 12:16 PM [employer] Gender Identity Not on file Sexual Orientation Not on file Last Filed Vital Signs Vital Sign Reading Time Taken Comments Blood Pressure 127/79 01/12/2021 10:42 AM CDT Pulse 67 01/12/2021 10:42 AM CDT Temperature 36.5 C (97.7 F) 01/12/2021 10:42 AM CDT Respiratory Rate 18 01/12/2021 10:42 AM CDT Oxygen Saturation 98% 01/12/2021 10:42 AM CDT Inhaled Oxygen Concentration - - Weight 112 kg (246 lb 11.1 oz) 01/12/2021 10:42 AM CDT Height 167.6 cm (5' 6 ) 01/12/2021 10:42 AM CDT Body Mass Index 39.82 01/12/2021 10:42 AM CDT Plan of Treatment Not on file Insurance [facility] [employer]
--- OUTSIDE RECORDS SUMMARY | 2024-10-22 09:27 | XMS_ITS | Clinical Summary ---
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 Gender Identity Not on file Sexual Orientation [...] 01/12/2021 10:42 AM CDT Plan of Treatment Health Maintenance Due Date Last Done Comments CT Colonography 1971 Colonoscopy 1971 Colorectal Cancer Screening 1971 FIT-DNA 1971 FIT 1971 FOBT 1971 Sigmoidoscopy 1971 MMR Vaccines (1 of 1 - Stand najma series) 02/28/1972 Varicella Vaccines (1 of 2 - 13+ 2-dose series) 02/28/1984 Hepatitis B Vaccines (1 of 3 - 19+ 3-dose series) 1990 Pap Smear 02/28/1992 Cervical Cancer Screening 2001 HPV/Cotest 2001 Mammogram 2011 DTaP,Tdap,and Td Vaccines (2 - Td or Tdap) 10/10/2017 09/12/2017 Pneumococcal Vaccine: 50+ Ye ars (1 of 1 - PCV) 2021 Zoster Vaccines (1 of 2) 2021 COVID-19 Vaccine (2023-2 5 season) 2024 Influenza Vaccine (Season Ended) 2025 RSV Vaccines (1 - 1-dose 75+ series) 2046 HIB Vaccines Aged Out No longer eligi ble based on patient's age to complete this topic HPV Vaccines Aged Out No longer eligi ble based on patient's age to complete this topic Hepatitis A Vaccines Aged Out No long er eligible based on patient's age to complete this topic IPV Vaccines Aged Out No longer eligi ble based on patient's age to complete this topic Meningococcal B Vaccine Aged Out No l onger eligible based on patient's age to complete this topic Meningococcal Vaccine Aged Out No britt ayush eligible based on patient's age to complete this topic Pneumococcal Vaccine Aged Out No long er eligible based on patient's age to complete this topic Rotavirus Vaccines Aged Out No longer eligible based on patient's age to complete this topic Insurance [facility] [employer]
--- OUTSIDE RECORDS SUMMARY | 2024-10-22 09:27 | XMS_ITS | Encounter Summary ---
Author Organization [facility] Address [address] [place] [address] Care Team Providers Care Interlibrary Loan Services Librarian Name Role Phone Parul Cam NP Primary Care Provider [phone] Encounter Details Date Type Department Care Team (Late st Contact Info) Description 10/02/2024 Results Follow-Up [facility] Family Medicine at [address] [place] [address] Parul Cam NP [address] [place] [address] [address] [place], [place] [id number] [place] ab ql w/rflx to [facility] qn, Rheumatoid factor, CRP (acute phase), Additional followed-up results: 12 Social History Tobacco Use Types Packs/Day Years Used Date Smoking Tobacco: Former Cigarettes 0.5 35 1 6 - 2020 Smokeless Tobacco: Never Comments:pt denied improveme nt with Nicotine patches AUDIT-C Answer Date Recorded Q1: How often do you have a drink containing alcohol? Never 09/26/2024 Q2: How many drinks containi ng alcohol do you have on a typical day when you are drinking? Patient does not drink Q3: How often do you have si x or more drinks on one occasion? 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
== END 2024-10-22 09:11 | disposition home or self-care (01) ==
PROVIDERS: Visit Provider Plastic Surgery
DX: S62.603D Fracture of unspecified phalanx of left middle finger, subsequent encounter for fracture with routine healing (principal); X58.XXXD Exposure to other specified factors, subsequent encounter; M19.041 Primary osteoarthritis, right hand
CPT/HCPCS: 73140

== ENCOUNTER 2025-04-16 13:31 | Emergency (ER) | payer OTHER, SELFPAY ==
--- NOTE | ~2025-04-16 | XR_ITS ---
Examination: XR ankle LT min 3V, XR foot LT min 3V Clinical History: pain, lateral Comparison: None Technique: 3 views left ankle, 3 views left foot Findings/impression: Left ankle: 1. No fracture or dislocation. 2. Severe lateral soft tissue swelling. Left foot: 1. No fracture or dislocation. 2. Mild midfoot degenerative changes. 3. Calcaneal enthesophyte at plantar fascia insertion. Reviewed, dictated and finalized at location R. 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
--- NOTE | 2025-04-16 13:42 | ED.GENADULT ---
HPI - General Adult General Chief complaint: Extremity Injury, Lower Stated complaint: left ankle injury Time Seen by Provider: 04/16/25 13:32 Source: patient Mode of arrival: ambulatory Limitations: no limitations History of Present Illness HPI narrative: Patient is a 55-year-old female presenting with complaint of left ankle Pain status post injury. Patient reports slipping while walking on gravel subsequently resulting in patient rolling her left ankle around 1145 today. Reports the pain radiates into her left foot. Patient states injury did occur while at work. Patient was wearing ankle-height steel-toed boots at time injury. No treatment initiated prior to arrival. she denies striking her head. No Loss consciousness. She denies feeling dizzy or lightheaded prior to fall.No history of previous fracture to left lower extremity. Related Data Home Medications ?Medication ?Instructions ?Recorded ?Confirmed ?Last Taken ?Type alprazolam 1 mg tablet 1 mg PO TID PRN anxiety 10/08/24 10/08/24 Unknown History amitriptyline 25 mg tablet 25 mg PO HS 10/08/24 10/08/24 Unknown History buspirone 30 mg tablet 30 mg PO BID 10/08/24 10/08/24 Unknown History celecoxib 200 mg capsule 200 mg PO Q12H 10/08/24 10/08/24 Unknown History fluticasone fur. 100 mcg-umeclid 1 inh inhalation Q24H 10/08/24 10/08/24 Unknown History 62.5 mcg-vilant 25 mcg inhalat.powder (Trelegy Ellipta) gabapentin 800 mg tablet 800 mg PO TID 10/08/24 10/08/24 Unknown History pantoprazole 40 mg tablet,delayed 40 mg PO DAILY 10/08/24 10/08/24 Unknown History release sertraline 100 mg tablet 150 mg PO Q24H 10/08/24 10/08/24 Unknown History trazodone 100 mg tablet 100 mg PO HS PRN insomnia 10/08/24 10/08/24 Unknown History Allergies Allergy/AdvReac Type Severity Reaction Status Date / Time No Known Allergies Allergy Unknown Verified 04/16/25 14:04 Review of Systems Review of Systems: CONSTITUTIONAL: Denies body aches, fever, chills, or sweats. EYES: Denies visual changes, redness, or discharge. ENT: Denies rhinorrhea, congestion, sore throat, or otalgia. CARDIOVASCULAR: Denies chest pain, palpitations, or edema. RESPIRATORY: Denies cough or dyspnea. GASTROINTESTINAL: Denies abdominal pain, nausea, vomiting, or diarrhea. GENITOURINARY: Denies dysuria or hematuria. SKIN: Denies rash, itching, or wounds. MUSCULOSKELETAL: Reports pain to left ankle, left Foot Denies back pain or myalgia. NEUROLOGIC: Denies headache, numbness, tingling, or weakness. PSYCH: Denies depression or anxiety. All systems reviewed & are unremarkable except as noted in HPI and below PMFSH Family History Family History Other Family history of arthritis Social History Social History Smoking status: Never smoker Alcohol intake: never Exam Narrative: GENERAL: Well-appearing, well-nourished, and in no acute distress. HEAD: Normocephalic, atraumatic. ENT: Mucous membranes pink and moist. NECK: Normal AROM. Supple. CHEST: No respiratory distress. HEART: Normal peripheral pulses. MUSCULOSKELETAL: No bony tenderness. EXTREMITIES: +edema +TTP to the lateral aspect of the L. ankle. Pain with ALL ROM of the L. ankle. +DNVI to the LLE SKIN: Warm, dry, no rash. Capillary refill normal. Normal skin turgor. NEURO: No focal deficits. Alert and oriented x3. Gait steady. PSYCH: Normal affect. No signs of depression or anxiety. Course Course Level of Care: Express Care Visit Vital Signs Vital signs: Vital Signs Temperature 98.5 F 04/16/25 13:47 Pulse Rate 98 04/16/25 13:47 Respiratory Rate 16 04/16/25 13:47 Blood Pressure 130/82 04/16/25 13:47 Pulse Oximetry 99 04/16/25 13:47 Oxygen Delivery Room Air 04/16/25 13:47 Temperature 98.5 F 04/16/25 13:47 Pulse Rate 98 04/16/25 13:47 Respiratory Rate 16 04/16/25 13:47 Blood Pressure 130/82 04/16/25 13:47 Pulse Oximetry 99 04/16/25 13:47 Oxygen Delivery Room Air 04/16/25 13:47 Procedures Orthopedic Splinting/Casting Injury #1: Splinting/Casting Date: 04/16/25 Splinting/Casting Time: 14:30 Side: left Lower Extremity Injury Location: ankle Lower Extremity Immobilizer: Santhosh wrap Pre-Procedure Neuro Vascular Exam: normal Post-Procedure Neuro Vascular Exam: normal Medical Decision Making MDM Narrative Medical decision making narrative: Discussed elevated blood pressure readings with patient and advised daily BP monitoring and f/u with PCP if persisting. Vital Signs Vital Signs: Vital Signs Temperature 98.5 F 04/16/25 13:47 Pulse Rate 98 04/16/25 13:47 Respiratory Rate 16 04/16/25 13:47 Blood Pressure 130/82 04/16/25 13:47 Pulse Oximetry 99 04/16/25 13:47 Oxygen Delivery Room Air 04/16/25 13:47 Temperature 98.5 F 04/16/25 13:47 Pulse Rate 98 04/16/25 13:47 Respiratory Rate 16 04/16/25 13:47 Blood Pressure 130/82 04/16/25 13:47 Pulse Oximetry 99 04/16/25 13:47 Oxygen Delivery Room Air 04/16/25 13:47 Imaging Data Attestation: I personally reviewed and interpreted this imaging study as follows: (NAF) Discharge Plan Discharge Clinical Impression: Ankle sprain and strain, Foot sprain, Elevated blood pressure reading in office without diagnosis of hypertension, Calcaneal spur of left foot, Arthritis of foot, left, degenerative Patient Disposition: Home Condition: Stable Instructions: Ankle Sprain (DC) Additional Instructions: As explained to you today, we are not a work comp facility. We are able to provide initial exams however, you will need to follow up with a work comp provider/your primary care provider after this visit. Go straight to ER should your symptoms become worse or should any new symptoms develop Patient Language: Uzbek Prescriptions: No Action clindamycin HCl [Cleocin HCl] 300 mg capsule 300 mg PO Q8H 7 Days Qty: 21 0RF metronidazole 500 mg tablet 500 mg PO Q12H 7 Days Qty: 14 0RF clotrimazole 1 % cream 1 applic topical BID 14 Days Qty: 30 0RF celecoxib 200 mg capsule 200 mg PO Q12H alprazolam 1 mg tablet 1 mg PO TID PRN (Reason: anxiety) sertraline 100 mg tablet 150 mg PO Q24H amitriptyline 25 mg tablet 25 mg PO HS gabapentin 800 mg tablet 800 mg PO TID trazodone 100 mg tablet 100 mg PO HS PRN (Reason: insomnia) pantoprazole 40 mg tablet,delayed release (DR/EC) 40 mg PO DAILY buspirone 30 mg tablet 30 mg PO BID Trelegy Ellipta 100-62.5-25 mcg blister with device 1 inh INHALATION Q24H Follow-up/Referrals: UNKNOWN,DOCTOR [Non-Staff] - 04/17/25 Time of Disposition: 14:20
[2025-04-16 13:47] VITALS: BP 130/82; PULSE 98; RESP 16; TEMP 36.9; O2SAT 99
== END 2025-04-16 14:32 | disposition home or self-care (01) ==
PROVIDERS: Emergency Provider Registered Nurse; PCP Family Medicine
DX: S93.402A Sprain of unspecified ligament of left ankle, initial encounter (principal); S96.912A Strain of unspecified muscle and tendon at ankle and foot level, left foot, initial encounter; S93.602A Unspecified sprain of left foot, initial encounter; W18.40XA Slipping, tripping and stumbling without falling, unspecified, initial encounter; R03.0 Elevated blood-pressure reading, without diagnosis of hypertension; M77.32 Calcaneal spur, left foot; M19.072 Primary osteoarthritis, left ankle and foot
CPT/HCPCS: 73610; 73630; 99213; G0463